=== PATIENT | female | born 1965 | race Caucasian/White ===

== ENCOUNTER → 2018-06-27 11:03 | Outpatient (CLI) | payer MEDICARE, MEDICAID, SELFPAY ==
--- NOTE | 2018-06-27 | DI.CT.S_ITS ---
PROCEDURE: CT SINUS SCREEN WO CON INDICATIONS: CHRONIC SINUSITIS TECHNIQUE: Noncontrast 3.0 mm axial images acquired from the frontal sinuses to the mid-sella, with coronal and sagittal reformats. For radiation dose reduction, the following was used: automated exposure control, adjustment of mA and/or kV according to patient size. COMPARISON: None. FINDINGS: Image quality: Excellent. Sinuses: Very minimal scattered mucosal thickening is present within the sinuses. Ostiomeatal Complexes: Ostiomeatal complexes are patent. There is marked narrowing on the right secondary to nasal septal deviation as well as mass effect from prominent merle bullosa as above. No Keon cells. Miscellaneous: Visualized intra-orbital contents are normal. There is a prominent left middle turbinate merle bullosa. Prominent rightward nasal septal deviation. IMPRESSION: 1. Minimal scattered sinus mucosal thickening. 2. Narrowing of the right ostiomeatal complex secondary to nasal septal deviation and merle bullosa as above. Dictated by: Sujata Rodriguez M.D. on 06/27/2018 at 15:42 Approved by: Sujata Rodriguez M.D. on 06/27/2018 at 15:44
== END ==
PROVIDERS: Visit Provider Otolaryngology
DX: J32.9 Chronic sinusitis, unspecified (principal); J34.2 Deviated nasal septum; J34.3 Hypertrophy of nasal turbinates
CPT/HCPCS: 70486

== ENCOUNTER → 2018-10-07 11:11 | Outpatient (CLI) | payer MEDICARE, MEDICAID, SELFPAY ==
[2018-10-07 12:11] LABS: Add Manual Diff / Slide Review NO; Basophils Percent Auto 0.3 % (0-2); Eosinophils Percent Auto 2.5 % (2-4); Hematocrit 40.5 % (36-46); Hemoglobin 13.5 g/dL (12.0-16.0); Lymphocytes Percent Auto 20.5 % (25-40); Mean Corpuscular HGB Conc 33.3 % (30-36); Mean Corpuscular Hemoglobin 30.2 PG (26-34); Mean Corpuscular Volume 90.7 fL (80-100); Monocytes Percent Auto 9.1 % (3-14); Neutrophils Absolute Auto 2900 /uL (1500-7000); Neutrophils Percent Auto 67.6 % (50-75); Platelet Count 200 X10^3/uL (150-400); Red Blood Cell Count 4.47 X10^6/uL (4.0-5.2); Red Cell Distribution Width 13.7 % (11.6-14.8); White Blood Cell Count 4.3 X10^3/uL (4.5-11.0)
[2018-10-07 12:20] LABS: Alanine Aminotransferase 28 IU/L (9-52); Albumin 4.8 g/dL (3.5-5.0); Albumin Globulin Ratio 1.4 (1.0-2.8); Alkaline Phosphatase 52 U/L (38-126); Aspartate Aminotransferase 31 IU/L (14-36); BUN Creatinine Ratio 15.6 (6-22); Bilirubin Total 0.8 mg/dL (0.2-1.3); Blood Urea Nitrogen 14 mg/dL (7-17); Calcium 9.8 mg/dL (8.4-10.2); Carbon Dioxide 27 mmol/L (22-32); Chloride 100 mmol/L (98-107); Cholesterol 181 mg/dL (140-199); Estimated Glomerular Filt Rate > 60.0 mL/min (>60); Globulin 3.5 g/dL (1.7-4.1); Glucose 110 mg/dL (70-100); HDL Cholesterol 84 mg/dL (40-60); HEMOLYSIS < 15 (0-50); LDL Cholesterol Calculated 79 mg/dL (<100); Potassium 3.9 mmol/L (3.4-5.1); Sodium 141 mmol/L (137-145); Total Protein 8.3 g/dL (6.3-8.2); Triglycerides 91 mg/dL (35-150)
[2018-10-07 13:11] LABS: Thyroid Stimulating Hormone 1.07 uIU/mL (0.47-4.68)
== END ==
PROVIDERS: PCP Family Medicine; Visit Provider Family Medicine
DX: E78.2 Mixed hyperlipidemia (principal); Z00.00 Encounter for general adult medical examination without abnormal findings
CPT/HCPCS: 36415; 80053; 80061; 84443; 85025

== ENCOUNTER → 2019-02-05 12:25 | Outpatient (CLI) | payer MEDICARE, MEDICAID, SELFPAY ==
--- NOTE | 2019-02-05 | DI.MG.S_ITS ---
BILATERAL DIGITAL SCREENING MAMMOGRAM 3D/2D WITH CAD: 02/05/2019 CLINICAL: Routine screening. Family history of breast cancer. Comparison is made to exams dated: 06/13/2017 mammogram, 10/27/2015 mammogram, and 10/26/2014 mammogram - [facility]. The tissue of both breasts is heterogeneously dense. This may lower the sensitivity of mammography. Current study was also evaluated with a Computer Aided Detection (CAD) system. No significant masses, calcifications, or other findings are seen in either breast. There has been no significant interval change. IMPRESSION: NEGATIVE There is no mammographic evidence of malignancy. A 1 year screening mammogram is recommended. This exam was interpreted at Station ID: [id number]. NOTE: For mammograms, a report in lay terms will be sent to the patient. Approximately 15% of breast malignancies will not be visualized mammographically. In the management of a palpable breast mass, a negative mammogram must not discourage biopsy of a clinically suspicious lesion. Electronically Signed By: Ryne coppola/lc:02/05/2019 13:15:44 letter sent: Normal Exam ACR BI-RADS Category 1: Negative 3341F
== END ==
PROVIDERS: PCP Family Medicine; Visit Provider Family Medicine
DX: Z12.31 Encounter for screening mammogram for malignant neoplasm of breast (principal); Z80.3 Family history of malignant neoplasm of breast
CPT/HCPCS: 77063; 77067

== ENCOUNTER 2019-06-07 09:21 | Emergency (ER) | payer MEDICARE, MEDICAID, SELFPAY ==
[2019-06-07 09:25] VITALS: BP 155/107; PULSE 80; RESP 14; TEMP 36.3; O2SAT 95; BMI 37.1
[2019-06-07 09:28] VITALS: PULSE 80
--- NOTE | 2019-06-07 09:30 | ED.EXTPRO ---
HPI - Extremity Problem General Chief complaint: Extremity Problem,Nontraumatic Stated complaint: L wrist swollen Time Seen by Provider: 06/07/19 09:26 Source: patient Mode of arrival: ambulatory Limitations: no limitations History of Present Illness HPI Narrative: Patient is a 54-year-old female who presents with left wrist pain and swelling. She says she picked up a bag bird see a few days ago she did not think she injured it. However yesterday and this morning she has noticed increased swelling she denies numbness or tingling. She has difficulty opening her hand completely because it hurts so bad. She has already had carpal tunnel surgery on that hand. She takes meloxicam and Vicodin daily. She was icing it she said that helped a little. MD Complaint: extremity pain and extremity swelling Pain Consistency: constant Location: left and upper extremity Related Data Previous Rx's Medication Instructions Recorded dextroamphetamine-amphetamine 15 mg PO SEE INSTRUCTIONS #30 tab 03/04/17 [Adderall] dextroamphetamine-amphetamine 15 mg PO BID #30 tab 05/02/17 [Adderall] benzonatate 100 mg capsule 100 mg PO TID #30 cap 02/07/18 albuterol sulfate 90 mcg/actuation 2 puff INHALATION Q4-6H PRN #6.7 04/27/18 aerosol inhaler gram fluconazole 150 mg tablet 150 mg PO ONCE #1 tab 04/27/18 inhalational spacing device #1 each 04/27/18 fluconazole 150 mg tablet 150 mg PO ONCE #1 tab 09/16/18 atenolol 100 mg tablet 100 mg PO Q DAY #90 tab 01/06/19 meloxicam 7.5 mg tablet 7.5 mg PO AMCC #90 tab 01/06/19 potassium chloride 20 mEq 20 meq PO QDAY #90 tab 03/02/19 tablet,extended release(part/cryst) omeprazole 20 mg capsule,delayed 20 mg PO TID #90 cap 04/06/19 release acyclovir 400 mg tablet 400 mg PO TID PRN #45 tab 04/22/19 atorvastatin [Lipitor] 10 mg PO HS #90 tab 04/22/19 hydrochlorothiazide 25 mg PO QDAY #90 tab 04/22/19 lamotrigine 150 mg tablet 300 mg PO QDAY #180 tab 04/22/19 dextroamphetamine-amphetamine 30 15 mg PO BID #60 tab 04/28/19 mg tablet hydrocodone 7.5 mg-acetaminophen 2 tab PO TID PRN #180 tab 06/04/19 325 mg tablet Allergies Allergy/AdvReac Type Severity Reaction Status Date / Time gabapentin [GABAPENTIN] Allergy Mild STOMACH Verified 06/07/19 09:27 UPSET nortriptyline [NORTRIPTYLINE] Allergy Mild STOMACH Verified 06/07/19 09:27 UPSET oxycodone [OXYCODONE] Allergy Mild MAKES ME Verified 06/07/19 09:27 ITCHY sumatriptan [SUMATRIPTAN] Allergy Mild Verified 06/07/19 09:27 pain contract AdvReac Unknown Uncoded 10/10/18 09:36 [facility] Medical History ADHD (attention deficit hyperactivity disorder) (Chronic) Ankle pain (Resolved) Anxiety (Chronic) Carpal tunnel syndrome (Resolved) Chronic back pain (Chronic) Chronic headaches (Chronic) Depression (Chronic) HSV (herpes simplex virus) infection (Chronic) Hypertension (Chronic) Lumbar spine pain (Chronic) Surgical History Anesthesia (Resolved) H/O varicose vein stripping (Resolved 2012) History of carpal tunnel repair (Resolved 02/17/13) History of lumbosacral spine surgery (Resolved 12/2004) Status post knee surgery (Resolved 2011) Status post tubal ligation (Resolved 2000) Family History (Updated 06/20/18 @ 12:29 by Ly Camarena) Mother Age: 75 Diabetes mellitus Asthma Obesity Essential hypertension Hyperlipidemia Sister Age: 53 Hyperlipidemia Obesity Essential hypertension Father CAD (coronary artery disease) Grandfather Cancer Grandmother No problems noted. Grandfather No problems noted. Grandmother No problems noted. Family/Other Breast cancer Family/Other Breast cancer Social History Smoking Status: Current some day smoker Family History Mother Age: 75 Diabetes mellitus Asthma Obesity Essential hypertension Hyperlipidemia Sister Age: 53 Hyperlipidemia Obesity Essential hypertension Father CAD (coronary artery disease) Grandfather Cancer Grandmother No problems noted. Grandfather No problems noted. Grandmother No problems noted. Family/Other Breast cancer Family/Other Breast cancer Social History Smoking Status: Current some day smoker Exam Initial Vital Signs Initial Vital Signs: Vital Signs Temperature 97.4 F L 06/07/19 09:25 Pulse Rate 80 06/07/19 09:25 Respiratory Rate 14 06/07/19 09:25 Blood Pressure 155/107 H 06/07/19 09:25 Pulse Oximetry 95 06/07/19 09:25 GENERAL: Well-appearing, well-nourished and in no acute distress. CARDIOVASCULAR: peripheral pulses in tact, cap refill <2 sec RESPIRATORY: No respiratory distress, speaks in full sentences without difficulty EXTREMITIES: Normal range of motion, no clubbing or edema. Neurovascularly intact Left wrist swollen over flexor retinaculum. She is able to extend her fingers some. She has good sensations strong radial pulse. NEUROLOGICAL: Cranial nerves II through XII grossly intact. Normal gait and speech. SKIN: Warm, dry, no petechiae, no rashes or lesions. Course Orders Ordered: ED Orders 06/07/19 09:31 XR wrist LT min 3V Stat Vital Signs Vital signs: Vital Signs - 8 hr 06/07/19 09:25 06/07/19 09:28 Temperature 97.4 F L Pulse Rate 80 Pulse Rate [Left Radial] 80 Respiratory Rate 14 Blood Pressure 155/107 H Pulse Oximetry 95 MDM - Extremity (Nontraumatic) Imaging Data left wrist: Radiologist's impression: PROCEDURE: XR WRIST LT MIN 3V INDICATIONS: Pain left wrist w/o known trauma TECHNIQUE: 4 views of the wrist were acquired. COMPARISON: None. FINDINGS: Bones: No displaced fractures or dislocations. No suspicious bony lesions. Moderate degenerative changes are present involving the basal joints of the thumb. There is ulnar minus variance by approximately 2 mm. Soft tissues: No suspicious soft tissue calcifications. IMPRESSION: 1. No acute fractures. 2. Moderate degenerative changes of the distal joints of the thumb. 3. Ulnar minus variance. Dictated by: Alden Freeman M.D. on 06/07/2019 at 8:4 Discharge Plan Departure Patient Disposition: Home Clinical Impression: Right wrist sprain Qualifiers: Encounter type: initial encounter Qualified Code(s): S63.501A - Unspecified sprain of right wrist, initial encounter Discharge Date/Time: 06/07/19 10:16 Instructions: Wrist Sprain Activity Restrictions/Additional Instructions: *You have been diagnosed with right wrist sprain *What to do: Elevate, ice 20-30 minutes at a time, increase activity as tolerated *Continue to take medications as directed Continue meloxicam and Vicodin as previously prescribed *Follow up with your primary care provider in 2-3 days *Return to ER if you should have numbness tingling weakness or any new, worsening or concerning symptoms Prescriptions: No Action albuterol sulfate 90 mcg/actuation HFA aerosol inhaler 2 puff INHALATION Q4-6H PRN (Reason: bronchospasm) Qty: 6.7 RF: 1 (DME) inhalational spacing device [Aerochamber MV] spacer See Dose Instructions .ROUTE .MEDSUPPLY Qty: 1 RF: 0 fluconazole 150 mg tablet 150 mg PO ONCE Qty: 1 RF: 0 fluconazole 150 mg tablet 150 mg PO ONCE Qty: 1 RF: 0 benzonatate [Tessalon Perles] 100 mg capsule 100 mg PO TID Qty: 30 RF: 1 dextroamphetamine-amphetamine [Adderall] 30 MG tablet 15 mg PO SEE INSTRUCTIONS Qty: 30 RF: 0 dextroamphetamine-amphetamine [Adderall] 30 MG tablet 15 mg PO BID Qty: 30 RF: 0 atenolol 100 mg tablet 100 mg PO Q DAY Qty: 90 RF: 1 meloxicam [Mobic] 7.5 mg tablet 7.5 mg PO AMCC Qty: 90 RF: 1 potassium chloride [Klor-Con M20] 20 mEq tablet,ER particles/crystals 20 meq PO QDAY Qty: 90 RF: 2 omeprazole 20 mg capsule,delayed release(DR/EC) 20 mg PO TID Qty: 90 RF: 2 acyclovir 400 mg tablet 400 mg PO TID PRN (Reason: herpes) Qty: 45 RF: 0 hydrochlorothiazide 25 mg tablet 25 mg PO QDAY Qty: 90 RF: 1 atorvastatin [Lipitor] 10 mg tablet 10 mg PO HS Qty: 90 RF: 0 lamotrigine [Lamictal] 150 mg tablet 300 mg PO QDAY Qty: 180 RF: 1 dextroamphetamine-amphetamine [Adderall] 30 mg tablet 15 mg PO BID Qty: 60 RF: 0 hydrocodone-acetaminophen 7.5-325 mg tablet 2 tab PO TID PRN (Reason: PAIN) Qty: 180 RF: 0 Referrals: Manuel Rodríguez MD [Primary Care Provider] -
[2019-06-07 10:15] VITALS: BP 165/104; PULSE 75; RESP 18; TEMP 36.7; O2SAT 99
== END 2019-06-07 10:16 | disposition home or self-care (01) ==
LOC: ED 10:07
PROVIDERS: Emergency Provider Emergency Medicine; PCP Family Medicine
DX: S63.501A Unspecified sprain of right wrist, initial encounter (principal)
CPT/HCPCS: 73110; 99282; 99283

== ENCOUNTER → 2019-12-07 11:55 | Outpatient (CLI) | payer MEDICARE, MEDICAID, SELFPAY ==
[2019-12-07 12:28] LABS: Add Manual Diff / Slide Review NO; Basophils Absolute Auto 0 /uL (0-100); Basophils Percent Auto 0.3 % (0-2); Eosinophils Absolute Auto 100 /uL (0-450); Eosinophils Percent Auto 2.6 % (2-4); Hematocrit 39.5 % (36-46); Hemoglobin 13.4 g/dL (12.0-16.0); Lymphocytes Absolute Auto 900 /uL (1100-4500); Lymphocytes Percent Auto 18.7 % (25-40); Mean Corpuscular Hemoglobin 30.5 PG (26-34); Mean Corpuscular Volume 89.7 fL (80-100); Monocytes Absolute Auto 400 /uL (0-900); Monocytes Percent Auto 9.5 % (3-14); Neutrophils Absolute Auto 3200 /uL (1500-7000); Neutrophils Percent Auto 68.9 % (50-75); Platelet Count 218 X10^3/uL (150-400); Red Cell Distribution Width 13.9 % (11.6-14.8); White Blood Cell Count 4.7 X10^3/uL (4.5-11.0)
[2019-12-07 12:56] LABS: Alanine Aminotransferase 24 IU/L (<35); Albumin 4.6 g/dL (3.5-5.0); Albumin Globulin Ratio 1.6 (1.0-2.8); Alkaline Phosphatase 52 U/L (38-126); Aspartate Aminotransferase 29 IU/L (14-36); Blood Urea Nitrogen 20 mg/dL (7-17); Calcium 9.6 mg/dL (8.4-10.2); Carbon Dioxide 31 mmol/L (22-32); Chloride 99 mmol/L (98-107); Cholesterol 173 mg/dL (140-199); Estimated Glomerular Filt Rate > 60.0 mL/min (>60); Globulin 2.9 g/dL (1.7-4.1); Glucose 109 mg/dL (70-100); HDL Cholesterol 71 mg/dL (40-60); HEMOLYSIS < 15 (0-50); LDL Cholesterol Calculated 79 mg/dL (<100); Potassium 4.1 mmol/L (3.4-5.1); Sodium 138 mmol/L (137-145); Total Protein 7.5 g/dL (6.3-8.2); Triglycerides 113 mg/dL (35-150)
[2019-12-07 13:27] LABS: Thyroid Stimulating Hormone 0.56 uIU/mL (0.47-4.68)
== END ==
PROVIDERS: PCP Family Medicine; Referring Provider Family Medicine; Visit Provider Family Medicine
DX: E78.2 Mixed hyperlipidemia (principal)
CPT/HCPCS: 36415; 80053; 80061; 84443; 85025

== ENCOUNTER → 2020-07-27 14:33 | Outpatient (CLI) | payer MEDICARE, MEDICAID, SELFPAY ==
--- NOTE | 2020-07-27 | DI.MG.S_ITS ---
BILATERAL DIGITAL SCREENING MAMMOGRAM 3D/2D WITH CAD: 07/27/2020 CLINICAL: Routine screening. Family history of breast cancer. Comparison is made to exams dated: 02/05/2019 mammogram, 06/13/2017 mammogram, and 10/27/2015 mammogram - [facility]. There are scattered fibroglandular elements in both breasts. Current study was also evaluated with a Computer Aided Detection (CAD) system. No significant masses, calcifications, or other findings are seen in either breast. There has been no significant interval change. IMPRESSION: NEGATIVE There is no mammographic evidence of malignancy. A 1 year screening mammogram is recommended. This exam was interpreted at Station ID: [id number]. NOTE: For mammograms, a report in lay terms will be sent to the patient. Approximately 15% of breast malignancies will not be visualized mammographically. In the management of a palpable breast mass, a negative mammogram must not discourage biopsy of a clinically suspicious lesion. Electronically Signed By: Karyna la/lc:07/27/2020 17:18:58 letter sent: Normal Exam ACR BI-RADS Category 1: Negative 3341F
== END ==
PROVIDERS: PCP Family Medicine; Referring Provider Family Medicine; Visit Provider Family Medicine
DX: Z12.31 Encounter for screening mammogram for malignant neoplasm of breast (principal); Z80.3 Family history of malignant neoplasm of breast
CPT/HCPCS: 77063; 77067

== ENCOUNTER → 2020-07-28 10:46 | Outpatient (CLI) | payer MEDICARE, MEDICAID, SELFPAY ==
[2020-07-28 12:40] LABS: Add Manual Diff / Slide Review NO; Basophils Absolute Auto 0 /uL (0-100); Basophils Percent Auto 0.4 % (0-2); Eosinophils Absolute Auto 100 /uL (0-450); Eosinophils Percent Auto 2.5 % (2-4); Hematocrit 37.8 % (36-46); Hemoglobin 12.6 g/dL (12.0-16.0); Lymphocytes Absolute Auto 800 /uL (1100-4500); Lymphocytes Percent Auto 24.4 % (25-40); Mean Corpuscular HGB Conc 33.5 % (30-36); Mean Corpuscular Hemoglobin 31.4 PG (26-34); Mean Corpuscular Volume 93.9 fL (80-100); Monocytes Absolute Auto 300 /uL (0-900); Monocytes Percent Auto 10.3 % (3-14); Neutrophils Absolute Auto 2100 /uL (1500-7000); Neutrophils Percent Auto 62.4 % (50-75); Platelet Count 149 X10^3/uL (150-400); Red Blood Cell Count 4.02 X10^6/uL (4.0-5.2); Red Cell Distribution Width 13.6 % (11.6-14.8); White Blood Cell Count 3.3 X10^3/uL (4.5-11.0)
[2020-07-28 13:00] LABS: Alanine Aminotransferase 65 IU/L (<35); Albumin 4.5 g/dL (3.5-5.0); Albumin Globulin Ratio 1.6 (1.0-2.8); Alkaline Phosphatase 47 U/L (38-126); Aspartate Aminotransferase 63 IU/L (14-36); BUN Creatinine Ratio 14.9 (6-22); Bilirubin Total 0.7 mg/dL (0.2-1.3); Blood Urea Nitrogen 14 mg/dL (7-17); Calcium 9.6 mg/dL (8.4-10.2); Carbon Dioxide 33 mmol/L (22-32); Chloride 100 mmol/L (98-107); Cholesterol 164 mg/dL (140-199); Estimated Glomerular Filt Rate > 60.0 mL/min (>60); Globulin 2.9 g/dL (1.7-4.1); Glucose 109 mg/dL (70-100); HDL Cholesterol 67 mg/dL (40-60); HEMOLYSIS < 15 (0-50); LDL Cholesterol Calculated 77 mg/dL (<100); Potassium 3.5 mmol/L (3.4-5.1); Sodium 139 mmol/L (137-145); Total Protein 7.4 g/dL (6.3-8.2); Triglycerides 102 mg/dL (35-150)
[2020-07-28 13:29] LABS: Thyroid Stimulating Hormone 1.08 uIU/mL (0.47-4.68)
== END ==
PROVIDERS: PCP Family Medicine; Referring Provider Family Medicine; Visit Provider Family Medicine
DX: E78.2 Mixed hyperlipidemia (principal); M15.0 Primary generalized (osteo)arthritis; Z13.29 Encounter for screening for other suspected endocrine disorder
CPT/HCPCS: 36415; 80053; 80061; 84443; 85025

== ENCOUNTER → 2020-08-17 09:42 | Outpatient (CLI) | payer MEDICARE, MEDICAID, SELFPAY ==
[2020-08-17 12:03] LABS: COVID19 -Nasal RAPID Negative (Negative)
== END ==
PROVIDERS: PCP Family Medicine; Visit Provider Surgery
DX: Z11.59 Encounter for screening for other viral diseases (principal)
CPT/HCPCS: 87635; C9803

== ENCOUNTER 2020-08-18 12:27 | Day surgery (SDC) | payer MEDICARE, MEDICAID, SELFPAY ==
--- NOTE | 2020-08-18 | PATH_ITS ---
[facility] Accession Number: [id number] . 01 Material submitted: . colon - DESCENDING COLON POLYP . 01 Clinical history: . SDC . 02 Diagnosis: Descending Colon, Polyp: Colonic mucosa with no diagnostic abnormality, consistent with polypoid redundancy. Negative for serrated lesion, dysplasia or malignancy. Additional step sections examined. MRV 08/23/2020 1344 Local . 02 Electronically signed: . Justyn Kurtz MD, PhD, Pathologist NPI- [id number] . 01 Gross description: . DESCENDING COLON POLYP: Received in formalin are 2 fragment(s) of donald, soft tissue measuring 0.4 x 0.2 x 0.2 cm to 0.3 x 0.2 x 0.1 cm submitted entirely in 1 cassette(s) /QBJ 08/19/2020 0650 Local . 02 Pathologist provided ICD-10: K63.5 . 02 CPT . 830239 Performed at: 01 [facility] [address], [place], [place] [id number] MD Dequan Bradley MD Phone: [phone] Performed at: 02 [facility] [address] [place], [place] [id number] MD Lupe Olivas MD Phone: [phone]
[2020-08-18 12:47] VITALS: BP 136/94; PULSE 63; RESP 15; TEMP 36.2; O2SAT 99; BMI 32.3
[2020-08-18] MEDS: LACTATED RINGERS 1,000 ML 200 ML IV (12:56)
--- NOTE | 2020-08-18 13:50 | PM.OP.ENDO ---
Operative Date/Time/Diagnoses Date of procedure: 08/18/20 Time of procedure: 13:50 Pre-op diagnosis: Screening colonoscopy Post-op diagnosis: other (Colonic polyp-descending colon) Procedure & Clinicians Study performed: Colonoscopy Polypectomy Same procedure as scheduled: Yes Indications: 55-year-old woman no prior colonoscopy presents for routine screening Surgeon: Ambrocio Shi Procedure Notes SCOAP/Timeout: Performed Procedure in detail: Medications: Conscious sedation using 7mg IV midazolam and 250mcg IV of fentanyl The history and physical was performed/updated and the patient is ASA class is 2 The procedure was discussed in detail with the patient. Potential risks complications including infection, bleeding, missed diagnosis, perforation, need for surgery, and were explained. Their questions were answered and informed consent was obtained. Patient was brought to the procedure room and placed standard monitoring equipment. The patient's vital signs were monitored continuously throughout the entire procedure. Prior to starting time-out was performed. The ablation patient was placed in the left lateral recumbent position. Procedural sedation was administered. Examination began with a thorough inspection of the perianal area there was no evidence of fissures, fistulae, external hemorrhoids or cutaneous malignancy. The colonoscopy scope was then placed into the anal canal and was advanced to the cecum, which was identified by the ileocecal valve, the appendiceal orifice and the confluence of the taenia. The scope was then slowly withdrawn examining colon thoroughly in all directions, irrigating it of any residual stool. 2 mm benign appearing polyp in the descending colon removed with biopsy forceps. Grade 2 internal hemorrhoids The patient tolerated the procedure well. They will be discharged once criteria are met. The prep was of good/excellent quality. The withdrawl time was 9 minutes. The sedation time was 28 minutes. Findings: polyp Specimen(s): other (Descending colon polyp) Complications: none Impression: Colonic polyp Post-procedure Recommendations: Colonscopy in 5 years Disposition: same day surgery
--- NOTE | 2020-08-18 13:51 | PM.HP.1 ---
History of Present Illness History of Present Illness Date Patient Seen: 08/18/20 Time Patient Seen: 13:51 Chief complaint: SDC Narrative: The patient presents for colorectal sreening. They have never had any previous examination for such. No personal or family history of colon cancer. On further history denies any recent gastrointestinal symptoms. No nausea, vomiting, abdominal pain, loss of appetite, unexplained weight loss, change in bowel habits, diarrhea, constipation, melena, hematochezia, or bright red blood per rectum. Patient History Medical History (Updated 08/18/20 @ 13:51 by Ambrocio Shi MD) ADHD (attention deficit hyperactivity disorder) Ankle pain Anxiety Carpal tunnel syndrome Chronic back pain Chronic headaches Depression HSV (herpes simplex virus) infection Hypertension Lumbar spine pain Surgical History Anesthesia H/O varicose vein stripping (2012) History of carpal tunnel repair (02/17/13) History of lumbosacral spine surgery (12/2004) Status post knee surgery (2011) Status post tubal ligation (2000) Family & Social History Family History Mother Age: 76 Diabetes mellitus Asthma Obesity Essential hypertension Hyperlipidemia Sister Age: 54 Hyperlipidemia Obesity Essential hypertension Father CAD (coronary artery disease) Grandfather Cancer Grandmother No problems noted. Grandfather No problems noted. Grandmother No problems noted. Family/Other Breast cancer Family/Other Breast cancer Social History: household members none Tobacco & Substance use: Tobacco type cigarettes Smoking Status Current some day smoker alcohol intake current alcohol intake frequency holiday/special occasion Substance Use Type does not use Meds Home Medications and Allergies Home Medications Medication Instructions Recorded Confirmed Type omeprazole 20 mg capsule,delayed 20 mg PO TID #90 cap 12/09/19 08/18/20 Rx release hydrochlorothiazide 25 mg tablet 25 mg PO QDAY #90 tab 01/18/20 08/18/20 Rx lamotrigine 150 mg tablet 300 mg PO QDAY #180 tab 04/25/20 08/18/20 Rx acyclovir 400 mg tablet See Rx Instructions .ROUTE 05/09/20 08/18/20 Rx .COMPLEX #45 tab potassium chloride 20 mEq See Rx Instructions .ROUTE 05/16/20 08/18/20 Rx tablet,extended release(part/cryst) .COMPLEX #90 tab atenolol 100 mg tablet See Rx Instructions .ROUTE 06/21/20 08/18/20 Rx .COMPLEX #90 tab meloxicam 7.5 mg tablet See Rx Instructions .ROUTE 06/21/20 08/18/20 Rx .COMPLEX #90 tab atorvastatin 10 mg tablet See Rx Instructions .ROUTE 07/18/20 08/18/20 Rx .COMPLEX #90 tablet dextroamphetamine-amphetamine 30 See Rx Instructions .ROUTE 08/01/20 08/18/20 Rx mg tablet .COMPLEX #30 tablet hydrocodone 7.5 mg-acetaminophen 2 tab PO TID PRN #180 tab 08/08/20 08/18/20 Rx 325 mg tablet Allergies Allergy/AdvReac Type Severity Reaction Status Date / Time gabapentin [GABAPENTIN] Allergy Mild STOMACH Verified 08/18/20 12:42 UPSET nortriptyline [NORTRIPTYLINE] Allergy Mild STOMACH Verified 08/18/20 12:42 UPSET oxycodone [OXYCODONE] Allergy Mild MAKES ME Verified 08/18/20 12:42 ITCHY sumatriptan [SUMATRIPTAN] Allergy Unknown Verified 08/18/20 12:42 pain contract AdvReac Unknown Uncoded 08/18/20 12:42 Review of Systems Review of Systems Narrative: A 10 point review of systems is negative except as noted in the HPI Exam Vital Signs (past 8 hours): - 08/18/20 12:47 Temperature 97.1 F L Pulse Rate 63 Respiratory Rate 15 Blood Pressure 136/94 H Pulse Oximetry 99 Oxygen Delivery Method Room Air Narrative Exam Narrative: General-no acute distress, well nourished adult female HEENT-moist mucous membranes, no scleral icterus Neck-supple, no lymphadenopathy Chest- non labored respirations, clear to auscultation bilaterally Cardiac-regular rate no peripheral edema Abdomen-soft, nontender, non distended Extremities-warm, well perfused Neurological-alert and oriented, no focal deficits Assessment & Plan Assessment and plan (1) Screening for colon cancer: Status: Acute Assessment & Plan narrative: The patient requires colorectal screening and colonoscopy is recommended. Technical details were discussed. Risks, benefits, alternatives explained. Risks including but not limited to myocardial infarction, aspiration, bleeding, pain, missed lesion, incomplete examination, need for further radiographic studies, colonic perforation, and need for major abdominal surgery were discussed. All questions were answered to their satisfaction, and they are in agreement with this plan.
[2020-08-18] MEDS: fentaNYL 250 MCG/5 ML INJ IV (14:11)
[2020-08-18] MEDS: MIDAZOLAM 5 MG/5 ML VIAL IV (14:11)
[2020-08-18 14:28] VITALS: BP 105/62; PULSE 62; RESP 15; TEMP 36.2; O2SAT 94
[2020-08-18 14:33] VITALS: BP 101/59; PULSE 60; RESP 15; O2SAT 93
[2020-08-18 14:38] VITALS: BP 99/53; PULSE 64; RESP 22; O2SAT 97
[2020-08-18 14:51] VITALS: BP 136/94; PULSE 63; RESP 16; TEMP 36.2; O2SAT 99
== END 2020-08-18 14:50 | disposition home or self-care (01) ==
PROVIDERS: PCP Family Medicine; Referring Provider Surgery; Visit Provider Surgery
PROC: 0DJD8ZZ Inspection of Lower Intestinal Tract, Via Natural or Artificial Opening Endoscopic (ICD-10-PCS; CPT 45378; principal; 2020-08-18 13:45)
DX: Z12.11 Encounter for screening for malignant neoplasm of colon (principal); I10 Essential (primary) hypertension; B00.9 Herpesviral infection, unspecified; F32.9 Major depressive disorder, single episode, unspecified; F41.9 Anxiety disorder, unspecified; K64.1 Second degree hemorrhoids; D12.4 Benign neoplasm of descending colon
CPT/HCPCS: 45380; J2250; J3010

== ENCOUNTER → 2020-08-24 10:02 | Outpatient (CLI) | payer MEDICARE, MEDICAID, SELFPAY ==
[2020-08-24 11:33] LABS: Alanine Aminotransferase 31 IU/L (<35); Albumin 4.5 g/dL (3.5-5.0); Albumin Globulin Ratio 1.7 (1.0-2.8); Alkaline Phosphatase 48 U/L (38-126); Aspartate Aminotransferase 33 IU/L (14-36); Bilirubin Total 0.8 mg/dL (0.2-1.3); Bilirubin Unconjugated 0.7 mg/dL (0.0-1.1); Globulin 2.7 g/dL (1.7-4.1); HEMOLYSIS < 15 (0-50); Total Protein 7.2 g/dL (6.3-8.2)
== END ==
PROVIDERS: PCP Family Medicine; Referring Provider Family Medicine; Visit Provider Family Medicine
DX: R79.89 Other specified abnormal findings of blood chemistry (principal)
CPT/HCPCS: 36415; 80076

== ENCOUNTER 2020-09-11 16:26 | Emergency (ER) | payer MEDICARE, MEDICAID, SELFPAY ==
[2020-09-11 16:29] VITALS: BP 228/113; PULSE 67; RESP 20; TEMP 36.5; O2SAT 99
--- NOTE | 2020-09-11 16:35 | DI.RAD.S_ITS ---
PROCEDURE: XR CHEST 1V INDICATIONS: chest pain TECHNIQUE: One view of the chest was acquired. COMPARISON: [facility], CHEST 2 VIEW, 11/24/2008, 21:51. [facility], CHEST 2 VIEW, 10/10/2007, 9:35. FINDINGS: Surgical changes and devices: None. Lungs and pleura: Lungs are clear. No pleural effusions or pneumothorax. Mediastinum: Mediastinal contours appear normal. Heart size is normal. Bones and chest wall: No suspicious bony lesions. Overlying soft tissues appear unremarkable. IMPRESSION: No acute cardiopulmonary abnormality. Dictated by: Hari Cosme M.D. on 09/11/2020 at 16:02 Approved by: Hari Cosme M.D. on 09/11/2020 at 16:04
[2020-09-11 16:43] VITALS: BP 207/108; PULSE 63; RESP 22
[2020-09-11 17:00] VITALS: BP 187/91; PULSE 60; RESP 18; O2SAT 99
--- NOTE | 2020-09-11 17:13 | ED_ITS ---
HPI - Chest Pain General Chief Complaint: Chest Pain Stated Complaint: states blood pressure is off, pins and needle feel Time Seen by Provider: 09/11/20 17:13 Source: patient Mode of arrival: Ambulatory History of Present Illness HPI narrative: 55-year-old woman with history of hypertension, hyperlipidemia, anxiety and bipolar 1 disorder presents with left-sided burning pain radiating from her neck into her upper chest and notably elevated blood pressures at home with systolics in the 190-200 range. She is not experiencing palpitations, orthopnea or dyspnea, no lower extremity edema, no nausea vomiting or diarrhea, no fevers, cough, chills, dysuria, abdominal pain. She was recently seen by her primary care physician who her usual 100 mg of atenolol and 25 mg of hydrochlorothiazide to include an extra 50 mg of atenolol in the evening. Over the last week this is not influenced her blood pressures at all. She also notes that 2-3 weeks ago she stumbled over her cat and fell against the wall with her left shoulder she does not describe hitting her no head or neck at that time but she still having shoulder pain and still actually has contusions to the acromial area of the left shoulder. Related Data Previous Rx's Medication Instructions Recorded acyclovir 400 mg tablet See Rx Instructions .ROUTE 08/29/20 .COMPLEX #45 tab atenolol 100 mg tablet See Rx Instructions .ROUTE 08/29/20 .COMPLEX #150 tab atorvastatin 10 mg tablet See Rx Instructions .ROUTE 08/29/20 .COMPLEX #90 tablet dextroamphetamine-amphetamine 30 See Rx Instructions .ROUTE 08/29/20 mg tablet .COMPLEX #30 [address] permit #1 ea 08/29/20 hydrochlorothiazide 25 mg tablet 25 mg PO QDAY #90 tab 08/29/20 hydrocodone 7.5 mg-acetaminophen 2 tab PO TID PRN #180 tab 08/29/20 325 mg tablet lamotrigine 150 mg tablet 300 mg PO QDAY #180 tab 08/29/20 meloxicam 7.5 mg tablet See Rx Instructions .ROUTE 08/29/20 .COMPLEX #90 tab omeprazole 20 mg capsule,delayed 20 mg PO TID #90 cap 08/29/20 release potassium chloride 20 mEq See Rx Instructions .ROUTE 08/29/20 tablet,extended release(part/cryst) .COMPLEX #90 tab dexamethasone 10 mg PO DAILY #5 tab 09/11/20 dexamethasone 10 mg PO DAILY #5 tab 09/11/20 lisinopril 20 mg PO DAILY #30 tab 09/11/20 lisinopril 20 mg PO DAILY #30 tab 09/11/20 Allergies Allergy/AdvReac Type Severity Reaction Status Date / Time gabapentin [GABAPENTIN] Allergy Mild STOMACH Verified 09/09/20 13:44 UPSET nortriptyline [NORTRIPTYLINE] Allergy Mild STOMACH Verified 09/09/20 13:44 UPSET oxycodone [OXYCODONE] Allergy Mild MAKES ME Verified 09/09/20 13:44 ITCHY sumatriptan [SUMATRIPTAN] Allergy Unknown Verified 09/09/20 13:44 pain contract AdvReac Unknown Uncoded 09/09/20 13:44 Review of Systems Review of Systems Narrative: Remainder of review of systems including constitutional, ENT, cardiovascular, respiratory, GI, , musculoskeletal, skin, neurologic and psychiatric systems reviewed and are unremarkable except as noted in HPI. Patient History Medical History ADHD (attention deficit hyperactivity disorder) Ankle pain Anxiety Carpal tunnel syndrome Chronic back pain Chronic headaches Chronic pain syndrome Depression HSV (herpes simplex virus) infection Hypertension Lumbar spine pain Surgical History Anesthesia H/O varicose vein stripping (2012) History of carpal tunnel repair (02/17/13) History of lumbosacral spine surgery (12/2004) Status post knee surgery (2011) Status post tubal ligation (2000) Family History Mother Age: 76 Diabetes mellitus Asthma Obesity Essential hypertension Hyperlipidemia Sister Age: 54 Hyperlipidemia Obesity Essential hypertension Father CAD (coronary artery disease) Grandfather Cancer Grandmother No problems noted. Grandfather No problems noted. Grandmother No problems noted. Family/Other Breast cancer Family/Other Breast cancer Social History household members: none Smoking Status: Current some day smoker alcohol intake: current Smoking Status: Current some day smoker tobacco type: cigarettes alcohol intake frequency: holidays/special occasions only Substance Use Type: does not use Exam Narrative Exam Narrative: General: Healthy appearing, in no acute distress. Able to give a complete and coherent history. Well-nourished well-developed HEENT: Moist mucous membranes, normal sclera with reactive pupils, Neck: No JVD, significant tenderness to palpation along the left lateral aspect of the cervical spine reproducing of radicular pain down into the shoulder in the upper chest of which she was complaining Respiratory: Lungs are clear to auscultation, no wheezing no rales no rhonchi. Full and symmetrical air movement Cardiac: Regular rate and rhythm no murmurs no bruits Abdomen: Soft nontender good bowel tones, no flank pain Skin: Warm and dry, no rashes Neurologic: Grossly neurologically intact with no obvious asymmetries or abnormalities Extremities: Contusion healing nicely to the yellow and green stages of that the bruise resolving over the left AC joint down toward the deltoid, well perfused, neurovascularly intact Psych: Cooperative, mildly anxious and slightly pressured speech Initial Vital Signs Initial Vital Signs: Vital Signs Temperature 97.7 F 09/11/20 16:29 Pulse Rate 67 09/11/20 16:29 Respiratory Rate 20 09/11/20 16:29 Blood Pressure 228/113 H 09/11/20 16:29 Pulse Oximetry 99 09/11/20 16:29 Course Orders Ordered: Discontinued Medications Dexamethasone (Dexamethasone 4 Mg Tablet) 10 mg PO NOW ONE Stop: 09/11/20 17:37 Last Admin: 09/11/20 17:59 Dose: 10 mg Documented by: YASMINE Lisinopril (Lisinopril 20 Mg Tablet) 20 mg PO NOW ONE Stop: 09/11/20 17:37 Last Admin: 09/11/20 18:01 Dose: 20 mg Documented by: YASMINE Vital Signs Vital signs: Vital Signs - 8 hr 09/11/20 16:29 09/11/20 16:43 09/11/20 17:00 Temperature 97.7 F Pulse Rate 67 63 60 Respiratory Rate 20 22 18 Blood Pressure 228/113 H 207/108 H 187/91 H Pulse Oximetry 99 99 MDM - Chest Pain Medical Records Data Attestation: I reviewed the patient's medical records. Lab Data Attestation: I reviewed the patient's lab results. Result diagrams: 09/11/20 16:46 09/11/20 16:46 Labs: Lab Results 09/11/20 09/11/20 09/11/20 Range/Units 16:46 16:46 16:46 WBC 4.2 L (4.5-11.0) X10^3/uL RBC 3.92 L (4.0-5.2) X10^6/uL Hgb 12.5 (12.0-16.0) g/dL Hct 36.6 (36-46) % MCV 93.5 (80-100) fL MCH 32.0 (26-34) PG MCHC 34.2 (30-36) % RDW 13.6 (11.6-14.8) % Plt Count 177 (150-400) X10^3/uL Neut % (Auto) 68.2 (50-75) % Lymph % (Auto) 19.9 L (25-40) % [place] % (Auto) 8.4 (3-14) % Eos % (Auto) 2.9 (2-4) % Baso % (Auto) 0.6 (0-2) % Neut # (Auto) 2800 (2963-0808) /uL Lymph # (Auto) 800 L (7432-9074) /uL [place] # (Auto) 300 (0-900) /uL Eos # (Auto) 100 (0-450) /uL Baso # (Auto) 0 (0-100) /uL PT 11.8 (10.1-12.7) SECONDS INR 1.0 (0.9-1.3) APTT 31 (26.4-36.2) SECONDS Sodium 139 (137-145) mmol/L Potassium 3.6 (3.4-5.1) mmol/L Chloride 104 (98-107) mmol/L Carbon Dioxide 34 H (22-32) mmol/L BUN 19 H (7-17) mg/dL Creatinine 0.85 (0.52-1.04) mg/dL Estimated GFR > 60.0 (>60) mL/min BUN/Creatinine Ratio 22.4 H (6-22) Glucose 107 H (70-100) mg/dL Calcium 9.3 (8.4-10.2) mg/dL Total Bilirubin 0.7 (0.2-1.3) mg/dL AST 38 H (14-36) IU/L ALT 34 (<35) IU/L Alkaline Phosphatase 45 (38-126) U/L Total Creatine Kinase 69 (30-135) U/L CK-MB (CK-2) TNP CK-MB (CK-2) Rel Index TNP Troponin I < 0.012 (0.01-0.034) ng/mL Total Protein 7.4 (6.3-8.2) g/dL Albumin 4.3 (3.5-5.0) g/dL Globulin 3.1 (1.7-4.1) g/dL Albumin/Globulin Ratio 1.4 (1.0-2.8) Lipase 56 (23-300) U/L ECG Data Attestation: I personally reviewed and interpreted this ECG as follows: Interpretation: Sinus rhythm at a rate of 60 Normal axis, normal intervals No acute ST T wave changes MDM Narrative Medical decision making narrative: 55-year-old woman with 2-3 weeks of left- sided chest pain, anxiety and hypertension. Her family continues to question her about her symptoms which is making her more anxious. It is unclear whether the pain in the anxiety are exacerbating her blood pressure whether this is a baseline issue that needs to be further addressed for her. Clearly the neck pain is related to the recent fall and resolving contusion to the left shoulder with some radicular findings and no evidence of acute bony injury of the cervical spine (or again, she describes no overt injury to the head or the neck with fall where she landed on her shoulder). She is reassured regarding the radicular pain. I have given her 3 day course of Decadron to help with the inflammation. I did review possible side effects of damián or hypomania given her diagnosis of bipolar 1 disorder. Her blood pressure is significantly elevated and has been so for the last week despite adding an additional 50 mg of atenolol. Will add 20 mg of lisinopril in the mornings. She has a follow-up appointment with her primary care physician in about a week which will be perfect in following up on blood pressure and reviewing medications and which need to continue. She is safe for home discharge Discharge Plan Departure Patient Disposition: Home Clinical Impression: Radiculopathy affecting upper extremity Hypertension Qualifiers: Hypertension type: essential hypertension Qualified Code(s): I10 - Essential (primary) hypertension Instructions: DI for Neck Pain Activity Restrictions/Additional Instructions: It was so nice to see you again I think you have 2 issues going on today. First, your blood work and EKG were very reassuring. You are not having a heart attack or heart attack like syndrome. I think that the pain down the left side of your neck and her shoulder is from nerves in your neck. I am wondering if when you bruits your shoulder you twisted your neck enough to also cause some spasm in the neck which is pinching the nerve and causing the pain. For this, I am going to suggest that you take 3 days of steroid to reduce the inflammation. I have given you a dose of Decadron here in the emergency room. You will need 2.5 pills (10 mg) tomorrow and on Saturday. For your blood pressure, I am going to suggest that we add a 3rd blood pressure medication. To consistently be in the 180s to 200 systolic, you are likely going to need some additional help. Make sure you take the extra half a dose of atenolol tonight as you have been doing for this last week. Additionally I have given you 20 mg of lisinopril(the new medicine) and I will give you a prescription for this medicine daily and continue to keep track of your blood pressures. Keep your follow-up appointment with your new primary care doctor to see if this medicine is working for you. The 2 prescriptions have been electronically transmitted to [place] [facility] for you to picker tomorrow. If you have new or worsening problems, please feel free to return. I wish you the best Prescriptions: New dexamethasone 4 mg tablet 10 mg PO DAILY Qty: 5 RF: 0 lisinopril 20 mg tablet 20 mg PO DAILY Qty: 30 RF: 0 dexamethasone 4 mg tablet 10 mg PO DAILY Qty: 5 RF: 0 lisinopril 20 mg tablet 20 mg PO DAILY Qty: 30 RF: 0 No Action (DME) disabled parking permit See Rx Instructions .ROUTE .MEDSUPPLY Qty: 1 RF: 0 atenolol 100 mg tablet See Rx Instructions .ROUTE .COMPLEX Qty: 150 RF: 3 acyclovir 400 mg tablet See Rx Instructions .ROUTE .COMPLEX Qty: 45 RF: 2 atorvastatin 10 mg tablet See Rx Instructions .ROUTE .COMPLEX Qty: 90 RF: 3 hydrochlorothiazide 25 mg tablet 25 mg PO QDAY Qty: 90 RF: 3 lamotrigine [Lamictal] 150 mg tablet 300 mg PO QDAY Qty: 180 RF: 3 meloxicam 7.5 mg tablet See Rx Instructions .ROUTE .COMPLEX Qty: 90 RF: 3 omeprazole 20 mg capsule,delayed release(DR/EC) 20 mg PO TID Qty: 90 RF: 5 potassium chloride 20 mEq tablet,ER particles/crystals See Rx Instructions .ROUTE .COMPLEX Qty: 90 RF: 2 dextroamphetamine-amphetamine 30 mg tablet See Rx Instructions .ROUTE .COMPLEX Qty: 30 RF: 0 hydrocodone-acetaminophen 7.5-325 mg tablet 2 tab PO TID PRN (Reason: PAIN) Qty: 180 RF: 0 Referrals: Alex Starks MD [Primary Care Provider] -
[2020-09-11 17:14] LABS: Prothrombin Time 11.8 SECONDS (10.1-12.7)
[2020-09-11 17:17] LABS: PTT Partial Thromboplastin Tim 31 SECONDS (26.4-36.2)
[2020-09-11 17:19] LABS: Alanine Aminotransferase 34 IU/L (<35); Albumin 4.3 g/dL (3.5-5.0); Albumin Globulin Ratio 1.4 (1.0-2.8); Alkaline Phosphatase 45 U/L (38-126); Aspartate Aminotransferase 38 IU/L (14-36); BUN Creatinine Ratio 22.4 (6-22); Bilirubin Total 0.7 mg/dL (0.2-1.3); Blood Urea Nitrogen 19 mg/dL (7-17); Calcium 9.3 mg/dL (8.4-10.2); Carbon Dioxide 34 mmol/L (22-32); Chloride 104 mmol/L (98-107); Creatine Kinase 69 U/L (30-135); Estimated Glomerular Filt Rate > 60.0 mL/min (>60); Globulin 3.1 g/dL (1.7-4.1); Glucose 107 mg/dL (70-100); HEMOLYSIS < 15 (0-50); Lipase 56 U/L (23-300); Potassium 3.6 mmol/L (3.4-5.1); Sodium 139 mmol/L (137-145); Total Protein 7.4 g/dL (6.3-8.2)
[2020-09-11 17:20] LABS: Add Manual Diff / Slide Review NO; Basophils Absolute Auto 0 /uL (0-100); Basophils Percent Auto 0.6 % (0-2); Eosinophils Absolute Auto 100 /uL (0-450); Eosinophils Percent Auto 2.9 % (2-4); Hematocrit 36.6 % (36-46); Hemoglobin 12.5 g/dL (12.0-16.0); Lymphocytes Absolute Auto 800 /uL (1100-4500); Lymphocytes Percent Auto 19.9 % (25-40); Mean Corpuscular HGB Conc 34.2 % (30-36); Mean Corpuscular Volume 93.5 fL (80-100); Monocytes Absolute Auto 300 /uL (0-900); Monocytes Percent Auto 8.4 % (3-14); Neutrophils Absolute Auto 2800 /uL (1500-7000); Neutrophils Percent Auto 68.2 % (50-75); Platelet Count 177 X10^3/uL (150-400); Red Blood Cell Count 3.92 X10^6/uL (4.0-5.2); Red Cell Distribution Width 13.6 % (11.6-14.8); White Blood Cell Count 4.2 X10^3/uL (4.5-11.0)
[2020-09-11 17:30] VITALS: BP 193/96; PULSE 66; RESP 20; O2SAT 98
[2020-09-11 17:30] LABS: Troponin I < 0.012 ng/mL (0.01-0.034)
[2020-09-11] MEDS: dexAMETHasone 4 MG TABLET 10 MG PO (17:59)
[2020-09-11 18:01] VITALS: BP 193/96; PULSE 62
[2020-09-11] MEDS: lisinopriL 20 MG TABLET PO (18:01)
== END 2020-09-11 18:16 | disposition home or self-care (01) ==
PROVIDERS: Emergency Provider Emergency Medicine; PCP Family Medicine
DX: M54.10 Radiculopathy, site unspecified (principal); I10 Essential (primary) hypertension; E78.5 Hyperlipidemia, unspecified; F41.9 Anxiety disorder, unspecified; F31.9 Bipolar disorder, unspecified; F90.9 Attention-deficit hyperactivity disorder, unspecified type
CPT/HCPCS: 36415; 71045; 80053; 82550; 83690; 84484; 85025; 85610; 85730; 93005; 93010; 99281; 99284

== ENCOUNTER → 2020-09-21 16:16 | Outpatient (CLI) | payer MEDICARE, MEDICAID, SELFPAY ==
--- NOTE | 2020-09-21 16:17 | DI.RAD.S_ITS ---
PROCEDURE: XR CERVICAL SPINE 2V OR 3V INDICATIONS: Neck pain with radiculopathy on right TECHNIQUE: 3 view(s) of the cervical spine were acquired. COMPARISON: [facility], CERVICAL SPINE 2 OR 3 VIEWS, 10/20/2009, 12:54. FINDINGS: Bones: No fractures or dislocations to the T1 level. The lateral masses of C1 appear intact on the odontoid view. No suspicious bony lesions. Multilevel disc degeneration, severe at the C4-C5 and C5-C6 level and to slightly lesser degree C6-C7. Mild multilevel mid and lower cervical spine facet joint arthropathy and uncovertebral hypertrophy. Soft tissues: No prevertebral soft tissue swelling. IMPRESSION: Multilevel spondylosis, most notably with severe disc degeneration at the C4-C5 and C5-C6 levels. Dictated by: Flako Claire [facility] Interpreted: Louis Pepper MD on 09/21/2020 at 16:37 Approved by: Louis Pepper M.D. on 09/21/2020 at 17:22
== END ==
PROVIDERS: PCP Family Medicine; Referring Provider Family Medicine; Visit Provider Family Medicine
DX: M47.22 Other spondylosis with radiculopathy, cervical region (principal); M50.123 Cervical disc disorder at C6-C7 level with radiculopathy; I10 Essential (primary) hypertension
CPT/HCPCS: 72040

== ENCOUNTER → 2020-09-28 07:06 | Outpatient (CLI) | payer MEDICARE, MEDICAID, SELFPAY ==
--- NOTE | 2020-09-28 07:08 | DI.MRI.S_ITS ---
PROCEDURE: MR CERVICAL SPINE WO CON INDICATIONS: Radiculopathy and severe spine arthritis/disc degeneration TECHNIQUE: Noncontrast sagittal T1 spin echo and T2 fast spin echo, sagittal STIR, foraminal oblique sagittal T2 fast spin echo, and axial gradient echo or T2 fast spin echo through the cervical spine. COMPARISON: Located Within [facility], CR, XR CERVICAL SPINE 2V OR 3V, 09/21/2020, 16:23. FINDINGS: Image quality: Excellent. Alignment and Curvature: There is loss of normal cervical lordosis. There is mild grade 1 retrolisthesis of C4 on C5, C5 on C6, and C6 on C7. Mild grade 1 anterolisthesis of C7 on T1. Bone Marrow: Marrow demonstrates normal overall signal. There is moderate reactive signal within the endplates adjacent to the C4-C5 and C5-C6 intervertebral discs. Mild reactive signal within the endplates adjacent to the C6-C7 intervertebral discs. Hemangiomata at T3 and T4 are present. Spinal Cord: Visualized spinal cord has normal size and signal. No cerebellar tonsillar herniation. Paraspinous Soft Tissues: No paravertebral masses. Prevertebral soft tissues are normal in thickness. C2-C3: Mild disc desiccation and diffuse disc bulge. Mild facet and uncovertebral hypertrophy. Mild canal stenosis. Mild bilateral foraminal stenosis. C3-C4: Mild disc desiccation and diffuse disc bulge. Mild facet and uncovertebral hypertrophy bilaterally. Mild canal stenosis. Mild bilateral foraminal stenosis. C4-C5: Moderate disc height loss and desiccation. Moderate diffuse disc bulge. Moderate facet and uncovertebral hypertrophy bilaterally. Severe canal stenosis. Mild cord flattening severe bilateral foraminal stenosis with bilateral C5 nerve root compression. C5-C6: Moderate disc height loss and desiccation. Moderate diffuse disc bulge with superimposed central protrusion. Moderate facet and uncovertebral hypertrophy bilaterally. Severe canal stenosis. Mild cord flattening. Severe bilateral foraminal stenosis with bilateral C6 nerve root compression. C6-C7: Moderate disc height loss and desiccation. Mild diffuse disc bulge. Mild right and moderate left facet and uncovertebral hypertrophy. Moderate canal stenosis. Moderate right and severe left foraminal stenosis. Left C7 nerve root compression. C7-T1: Mild disc desiccation and diffuse disc bulge. Mild facet and uncovertebral hypertrophy. Mild canal stenosis. Mild bilateral foraminal stenosis. IMPRESSION: 1. Multilevel degenerative disc and facet disease, as well as uncovertebral hypertrophy. 2. Multilevel canal stenosis, worst at C4-C5 and C5-C6, where there is associated cord flattening. 3. Multilevel foraminal stenosis, worst at C5-C6, C6-C7, and C7-T1 where there is associated intraforaminal nerve root compression. Recommend correlation with clinical symptoms to ascertain relevance of these findings. Dictated by: Abiola Quiroz M.D. on 09/28/2020 at 9:05 Approved by: Abiola Quiroz M.D. on 09/28/2020 at 9:09
== END ==
PROVIDERS: PCP Family Medicine; Referring Provider Family Medicine; Visit Provider Family Medicine
DX: M54.12 Radiculopathy, cervical region (principal); G89.4 Chronic pain syndrome; M50.30 Other cervical disc degeneration, unspecified cervical region; M48.02 Spinal stenosis, cervical region
CPT/HCPCS: 72141

== ENCOUNTER → 2021-06-13 08:18 | Outpatient (CLI) | payer MEDICARE, MEDICAID, SELFPAY ==
[2021-06-13 15:53] LABS: COVID19 -Nasal RAPID Negative (Negative)
== END ==
PROVIDERS: PCP Family Medicine; Visit Provider Physical Medicine & Rehabilitation
DX: Z20.822 Contact with and (suspected) exposure to COVID-19 (principal)
CPT/HCPCS: 87635; C9803

== ENCOUNTER 2021-06-15 09:09 | Outpatient (CLI) | payer MEDICARE, MEDICAID, SELFPAY ==
[2021-06-15] VITALS (9 sets, daily range): BP systolic 130–167; BP diastolic 64–95; PULSE 61–68; RESP 14–20; TEMP 36.4; O2SAT 98–100
--- NOTE | 2021-06-15 09:14 | DI.RAD.S_ITS ---
PROCEDURE: PAIN C/T INTERLAMINAR INJECT INDICATIONS: SPINAL STENOSIS COMPARISON: [facility], MR, MR CERVICAL SPINE WO CON, 09/28/2020, 7:26. [facility], CR, XR CERVICAL SPINE 2V OR 3V, 09/21/2020, 16:23. FINDINGS: Fluoroscopic spot filming was performed to verify placement of a spinal needle at the C6-C7 level, as labeled on the films. Appropriate location of the needle tip was confirmed by injection of iodinated contrast. IMPRESSION: No significant intraprocedural abnormality. Dictated by: Neo Knowles M.D. on 06/15/2021 at 9:43 Approved by: Neo Knowles M.D. on 06/15/2021 at 9:43
--- NOTE | 2021-06-15 09:43 | P.PCN_ITS ---
Date/Time/Diagnoses Date of procedure: 06/15/21 Time of procedure: 10:17 Pre-procedure diagnosis: 1. CERVICAL STENOSIS, 2. CERVICAL HNP WITH UPPER EXTREMITY RADICULAR FEATURES Post-procedure diagnosis: same Procedure Notes Procedure: 1. FLUORSCOPICALLY GUIDED CONTRAST CONTROLLED INTERLAMINAR EPIDURAL STEROID INJECTION - C6/7 TL JEOVANNY Indications: Trisha is referred by Dr. Starks for treatment of Cervical HNP with Upper Extremity Paresthesias. Physician: Juan Jenkins Total Fluoroscopy time (seconds): 23 Total sedation minutes: 11 Complications: none Procedure in detail & Post-procedure care: FINDINGS Cervical Stenosis due to disc deterioration and nerve root irritation and nerve root irritation DESCRIPTION OF PROCEDURE Fluoroscopically guided, contrast-controlled C6/7 translaminar epidural steroid injection with conscious sedation. Following review of allergy and review of potential side effects and complications, including, but not necessarily limited to, infection, allergic reaction, local tissue breakdown, temporary as well as permanent nerve injury, stroke, paralysis, and possible , the patient indicated that patient understood and agreed to proceed. An informed consent document was signed by the patient, witnessed by a nurse, and placed in the patient's chart. Additionally, other treatment options including modalities, medications, and physical therapy were reviewed with the patient. After review of previous anaesthesic history and IV conscious sedation the patient was deemed safe to proceed with today?s procedure with IV conscious sedation as ASA class II designation. Safety time-out was performed to confirm patient ID, procedure to be performed and site of procedure. IV sedation was accomplished with a combination of 2mg of Versed and 50mcg of Fentanyl administered by the RN after DO order, titrated to patient comfort during the course of the procedure while the patient remained responsive to all verbal commands. In the prone position, following sterile prep and drape of the cervical region, the C6/7 translaminar space was identified fluoroscopically. The skin was anesthetized via a 25-gauge 1.5-inch needle with 1% lidocaine solution. At this point, a 25-gauge, 2.5-inch short bevel spinal needle was atraumatically introduced and advanced under fluoroscopic guidance into epidural space at the C6/7 translaminar space. Depth was confirmed on lateral view. Radiological data, including multiple fluoroscopic views of the cervical spine, reveal a spinal needle at the C6/7 translaminar space. Lateral views then show placement of the needle in the epidural space. Subsequent views show contrast material flowing superiorly and inferiorly in the epidural space. DSA fluoroscopy with live contrast injection, once again, confirmed no vascular or intrathecal uptake. At this point, using loss of resistance technique with saline and air, the epidural space was entered. Following negative aspiration, injection of appro ximately 1.5 cc of [id number]-200 with live fluoroscopy in the AP view confirmed epidural flow in the epidural space without vascular or intrathecal uptake observed. Subsequently, a test dose of 1 cc of 1% lidocaine solution was injected and patient was observed for two minutes without signs or symptoms of complications, including abdominal pain, shortness of breath, bilateral upper or lower extremity weakness, nausea and vomiting, prior to steroid injection. At this point, 3cc or 30mg of dexamethasone was then injected without incident. The patient tolerated the procedure well without signs or symptoms of complications prior to being transferred to the recovery area for further monitoring, The patient was then transferred to the recovery area where they were observed for an appropriate period of time after the injection. The patient reported a VAS score of 6 prior to the procedure and a post-procedure VAS of 0. POST OP INSTRUCTIONS The patient was provided a Pain Log to continue to record their response to the target-specific procedure prior to follow-up visit with the referring provider. Additionally, specific post-injection care instructions and a contact number to our office were provided if concerns arise regarding possible complications associated with the procedure are suspected.
[2021-06-15] MEDS: fentaNYL 100 MCG/2 ML INJ 50 MCG IV (10:03)
[2021-06-15] MEDS: MIDAZOLAM 5 MG/5 ML VIAL IV (10:03)
[2021-06-15] MEDS: BUPIVACAINE 0.25% (PF) VIAL 2 ML INJ (10:23)
[2021-06-15] MEDS: IOPAMIDOL 15 ML VIAL 3 ML INJ (10:23)
[2021-06-15] MEDS: DEXAMETHASONE 10 MG/ML VIAL 30 MG INJ (10:24)
== END 2021-06-15 10:40 | disposition home or self-care (01) ==
PROVIDERS: PCP Family Medicine; Referring Provider Physical Medicine & Rehabilitation; Visit Provider Physical Medicine & Rehabilitation
DX: M48.02 Spinal stenosis, cervical region (principal); M50.123 Cervical disc disorder at C6-C7 level with radiculopathy
CPT/HCPCS: 62321; 99152; J1100; J2250; J3010

== ENCOUNTER → 2021-08-10 17:10 | Outpatient (CLI) | payer MEDICARE, MEDICAID, SELFPAY ==
--- NOTE | 2021-08-10 | DI.MG.S_ITS ---
BILATERAL DIGITAL SCREENING MAMMOGRAM 3D/2D WITH CAD: 08/10/2021 CLINICAL: Routine screening. Family history of breast cancer. Comparison is made to exams dated: 07/27/2020 mammogram, 02/05/2019 mammogram, and 06/13/2017 mammogram - [facility]. There are scattered fibroglandular elements in both breasts. Current study was also evaluated with a Computer Aided Detection (CAD) system. No significant masses, calcifications, or other findings are seen in either breast. There has been no significant interval change. IMPRESSION: NEGATIVE There is no mammographic evidence of malignancy. A 1 year screening mammogram is recommended. This exam was interpreted at Station ID: [id number]. NOTE: For mammograms, a report in lay terms will be sent to the patient. Approximately 15% of breast malignancies will not be visualized mammographically. In the management of a palpable breast mass, a negative mammogram must not discourage biopsy of a clinically suspicious lesion. Electronically Signed By: Karyna la/lc:08/11/2021 11:48:40 letter sent: Normal Exam ACR BI-RADS Category 1: Negative [id number]
== END ==
PROVIDERS: PCP Family Medicine; Referring Provider Family Medicine; Visit Provider Family Medicine
DX: Z12.31 Encounter for screening mammogram for malignant neoplasm of breast (principal); Z80.3 Family history of malignant neoplasm of breast
CPT/HCPCS: 77063; 77067

== ENCOUNTER → 2021-10-24 12:59 | Outpatient (CLI) | payer MEDICARE, MEDICAID, SELFPAY ==
[2021-10-24 14:29] LABS: COVID19 -Nasal RAPID Negative (Negative)
== END ==
PROVIDERS: PCP Family Medicine; Referring Provider Physical Medicine & Rehabilitation; Visit Provider Physical Medicine & Rehabilitation
DX: Z20.822 Contact with and (suspected) exposure to COVID-19 (principal)
CPT/HCPCS: 87635; C9803

== ENCOUNTER 2021-10-26 09:15 | Outpatient (CLI) | payer MEDICARE, MEDICAID, SELFPAY ==
[2021-10-26] VITALS (9 sets, daily range): BP systolic 132–171; BP diastolic 66–93; PULSE 54–96; RESP 14–55; TEMP 36.7; O2SAT 7–100
--- NOTE | 2021-10-26 09:16 | DI.RAD.S_ITS ---
PROCEDURE: PAIN C/T INTERLAMINAR INJECT INDICATIONS: SPINAL STENOSIS COMPARISON: [facility], , PAIN C/T INTERLAMINAR INJECT, 06/15/2021, 10:08. FINDINGS: Fluoroscopic spot filming was performed to verify placement of a spinal needle at the C5-C6 level, as labeled on the films. Appropriate location of the needle tip was confirmed by injection of iodinated contrast. IMPRESSION: No significant intraprocedural abnormality. Dictated by: Neo Knowles M.D. on 10/26/2021 at 10:54 Approved by: Neo Knowles M.D. on 10/26/2021 at 10:54
[2021-10-26] MEDS: fentaNYL 100 MCG/2 ML INJ 50 MCG IV (10:20)
[2021-10-26] MEDS: MIDAZOLAM 5 MG/5 ML VIAL IV (10:20)
[2021-10-26] MEDS: IOPAMIDOL 15 ML VIAL 3 ML INJ (10:25)
[2021-10-26] MEDS: DEXAMETHASONE 10 MG/ML VIAL 30 MG INJ (10:25)
[2021-10-26] MEDS: BUPIVACAINE 0.25% (PF) VIAL 2 ML INJ (10:25)
--- NOTE | 2021-10-26 10:40 | PM.PROC.IR.1 ---
Date/Time/Diagnoses Date of procedure: 10/26/21 Time of procedure: 10:41 Pre-procedure diagnosis: 1. CERVICAL STENOSIS, 2. CERVICAL HNP WITH UPPER EXTREMITY RADICULAR FEATURES This procedure is found to meet the Governor's proclamation 20-24.2 regarding non urgent procedures. This patient meets multiple criteria for the procedure including continuing or worsening of significant or severe pain, combined with further deterioration of the patient's condition or overall health as well as delay in treatment would be expected to result in less positive ultimate medical outcome. Therefore the decision to perform the procedure in an outpatient hospital setting is found to be in accordance with guidelines of the proclamation. Post-procedure diagnosis: same Procedure Notes Procedure: 1. FLUORSCOPICALLY GUIDED CONTRAST CONTROLLED INTERLAMINAR EPIDURAL STEROID INJECTION - C5/6 TL JEOVANNY Indications: Trisha is referred by Dr. Starks for treatment of Cervical HNP with Upper Extremity Paresthesias. Physician: Juan Jenkins Total Fluoroscopy time (seconds): 31 Total sedation minutes: 14 Complications: none Procedure in detail & Post-procedure care: FINDINGS Cervical Stenosis due to disc deterioration and nerve root irritation and nerve root irritation DESCRIPTION OF PROCEDURE Fluoroscopically guided, contrast-controlled C5/6 translaminar epidural steroid injection with conscious sedation. Following review of allergy and review of potential side effects and complications, including, but not necessarily limited to, infection, allergic reaction, local tissue breakdown, temporary as well as permanent nerve injury, stroke, paralysis, and possible , the patient indicated that patient understood and agreed to proceed. An informed consent document was signed by the patient, witnessed by a nurse, and placed in the patient's chart. Additionally, other treatment options including modalities, medications, and physical therapy were reviewed with the patient. After review of previous anaesthesic history and IV conscious sedation the patient was deemed safe to proceed with today?s procedure with IV conscious sedation as ASA class II designation. Safety time-out was performed to confirm patient ID, procedure to be performed and site of procedure. IV sedation was accomplished with a combination of 2mg of Versed and 50mcg of Fentanyl administered by the RN after DO order, titrated to patient comfort during the course of the procedure while the patient remained responsive to all verbal commands. In the prone position, following sterile prep and drape of the cervical region, the C5/6 translaminar space was identified fluoroscopically. The skin was anesthetized via a 25-gauge 1.5-inch needle with 1% lidocaine solution. At this point, a 25-gauge, 2.5-inch short bevel spinal needle was atraumatically introduced and advanced under fluoroscopic guidance into epidural space at the C5/6 translaminar space. Depth was confirmed on lateral view. Radiological data, including multiple fluoroscopic views of the cervical spine, reveal a spinal needle at the C5/6 translaminar space. Lateral views then show placement of the needle in the epidural space. Subsequent views show contrast material flowing superiorly and inferiorly in the epidural space. DSA fluoroscopy with live contrast injection, once again, confirmed no vascular or intrathecal uptake. At this point, using loss of resistance technique with saline and air, the epidural space was entered. Following negative aspiration, injection of approximately 1.5 cc of Isovue-200 with live fluoroscopy in the AP view confirmed epidural flow in the epidural space without vascular or intrathecal uptake observed. Subsequently, a test dose of 1cc of 1% lidocaine solution was injected and patient was observed for two minutes without signs or symptoms of complications, including abdominal pain, shortness of breath, bilateral upper or lower extremity weakness, nausea and vomiting, prior to steroid injection. At this point, 3cc or 30mg of dexamethasone was then injected without incident. The patient tolerated the procedure well without signs or symptoms of complications prior to being transferred to the recovery area for further monitoring, The patient was then transferred to the recovery area where they were observed for an appropriate period of time after the injection. The patient reported a VAS score of 6 prior to the procedure and a post-procedure VAS of 0. POST OP INSTRUCTIONS The patient was provided a Pain Log to continue to record their response to the target-specific procedure prior to follow-up visit with the referring provider. Additionally, specific post-injection care instructions and a contact number to our office were provided if concerns arise regarding possible complications associated with the procedure are suspected.
== END 2021-10-26 11:10 | disposition home or self-care (01) ==
PROVIDERS: PCP Family Medicine; Referring Provider Physical Medicine & Rehabilitation; Visit Provider Physical Medicine & Rehabilitation
DX: M48.02 Spinal stenosis, cervical region (principal); M50.122 Cervical disc disorder at C5-C6 level with radiculopathy
CPT/HCPCS: 62321; 99152; J1100; J2250; J3010

== ENCOUNTER → 2022-08-27 14:31 | Outpatient (CLI) | payer MEDICARE, MEDICAID, SELFPAY ==
--- NOTE | 2022-08-27 14:33 | DI.MG.S_ITS ---
BILATERAL DIGITAL SCREENING MAMMOGRAM 3D/2D WITH CAD: 08/27/2022 CLINICAL: Routine screening. Family history of breast cancer. Comparison is made to exams dated: 08/10/2021 mammogram, 07/27/2020 mammogram, and 02/05/2019 mammogram - [facility]. Both breasts are heterogeneously dense, which may obscure small masses (category c / 51-75% glandular tissue). Current study was also evaluated with a Computer Aided Detection (CAD) system. No significant masses, calcifications, or other findings are seen in either breast. There has been no significant interval change. IMPRESSION: NEGATIVE There is no mammographic evidence of malignancy. A 1 year screening mammogram is recommended. Based on the Tyrer Cuzick model (a risk assessment model) the patient's lifetime risk is 7.9% and her 10 year risk is 2.6%. According to the ACR, ACS, and NCCN guidelines, an annual breast MRI exam along with mammogram is recommended if the patient's lifetime risk is 20% or greater. This exam was interpreted at Station ID: [id number]. NOTE: For mammograms, a report in lay terms will be sent to the patient. Approximately 15% of breast malignancies will not be visualized mammographically. In the management of a palpable breast mass, a negative mammogram must not discourage biopsy of a clinically suspicious lesion. Electronically Signed By: Nicolle patel/lc:08/27/2022 14:59:16 letter sent: Normal Exam ACR BI-RADS Category 1: Negative 3341F
== END ==
PROVIDERS: PCP Family Medicine; Referring Provider Family Medicine; Visit Provider Family Medicine
DX: Z12.31 Encounter for screening mammogram for malignant neoplasm of breast (principal); Z80.3 Family history of malignant neoplasm of breast
CPT/HCPCS: 77063; 77067

== ENCOUNTER → 2023-04-18 14:59 | Outpatient (CLI) | payer MEDICARE, MEDICAID, SELFPAY ==
--- NOTE | 2023-04-18 15:01 | DI.RAD.S_ITS ---
PROCEDURE: XR CERVICAL SPINE 2V OR 3V INDICATIONS: pain TECHNIQUE: 3 view(s) of the cervical spine were acquired. COMPARISON: [facility], CR, XR CERVICAL SPINE 2V OR 3V, 09/21/2020, 16:23. FINDINGS: Bones: Postsurgical changes compatible C4-C7 ACDF. Orthopedic hardware is in expected position. Orthopedic hardware is intact. No fractures or dislocations to the T1 level. The lateral masses of C1 appear intact on the odontoid view. No suspicious bony lesions. Mild facet hypertrophy throughout the cervical spine. Soft tissues: No prevertebral soft tissue swelling. IMPRESSION: Expected postsurgical change for C 4-C5, C5-C6 and C6-C7 ACDF. Multilevel facet arthropathy. No fracture. No acute osseous lesion. If symptoms and/or clinical suspicion for pathology persists, evaluation with MRI should be considered for further assessment. Dictated by: Ivette Porras MD, PhD on 04/18/2023 at 15:33 Approved by: Ivette Porras MD, PhD on 04/18/2023 at 15:35
[2023-04-18 16:07] LABS: Add Manual Diff / Slide Review NO; Basophils Absolute Auto 0 /uL (0-100); Basophils Percent Auto 0.5 % (0-2); Eosinophils Absolute Auto 200 /uL (0-450); Eosinophils Percent Auto 3.9 % (2-4); Hematocrit 35.5 % (36-46); Hemoglobin 12.1 g/dL (12.0-16.0); Lymphocytes Absolute Auto 1100 /uL (1100-4500); Lymphocytes Percent Auto 24.5 % (25-40); Mean Corpuscular HGB Conc 34.2 % (30-36); Mean Corpuscular Hemoglobin 29.3 PG (26-34); Mean Corpuscular Volume 85.7 fL (80-100); Monocytes Absolute Auto 500 /uL (0-900); Monocytes Percent Auto 11.5 % (3-14); Neutrophils Absolute Auto 2700 /uL (1500-7000); Neutrophils Percent Auto 59.6 % (50-75); Platelet Count 182 X10^3/uL (150-400); Red Blood Cell Count 4.14 X10^6/uL (4.0-5.2); Red Cell Distribution Width 13.1 % (11.6-14.8); White Blood Cell Count 4.5 X10^3/uL (4.5-11.0)
[2023-04-18 16:37] LABS: Alanine Aminotransferase 22 IU/L (<35); Albumin 4.3 g/dL (3.5-5.0); Albumin Globulin Ratio 1.6 (1.0-2.8); Alkaline Phosphatase 38 U/L (38-126); Aspartate Aminotransferase 28 IU/L (14-36); Bilirubin Total 0.5 mg/dL (0.2-1.3); Blood Urea Nitrogen 16 mg/dL (7-17); Calcium 9.3 mg/dL (8.4-10.2); Carbon Dioxide 32 mmol/L (22-32); Chloride 101 mmol/L (98-107); Cholesterol 162 mg/dL (140-199); Estimated Glomerular Filt Rate > 60 mL/min (>60); Globulin 2.7 g/dL (1.7-4.1); Glucose 72 mg/dL (70-100); HDL Cholesterol 74 mg/dL (40-60); HEMOLYSIS < 15 (0-50); LDL Cholesterol Calculated 71 mg/dL (<100); Potassium 3.7 mmol/L (3.4-5.1); Sodium 139 mmol/L (137-145); Triglycerides 83 mg/dL (35-150)
[2023-04-18 17:06] LABS: TSH w/ Reflex to FT4 0.35 uIU/mL (0.47-4.68)
[2023-04-18 17:37] LABS: Free T4, Direct Thyroxine 1.22 ng/dL (0.78-2.19)
[2023-04-18 19:14] LABS: Microalbumin Urine Random < 0.6 mg/dL (0-1.6)
== END ==
PROVIDERS: PCP Family Medicine; Referring Provider Family Medicine; Visit Provider Family Medicine
DX: M47.812 Spondylosis without myelopathy or radiculopathy, cervical region (principal); M48.02 Spinal stenosis, cervical region; E78.2 Mixed hyperlipidemia; M99.71 Connective tissue and disc stenosis of intervertebral foramina of cervical region; F90.9 Attention-deficit hyperactivity disorder, unspecified type; G89.4 Chronic pain syndrome; I10 Essential (primary) hypertension; Z98.1 Arthrodesis status
CPT/HCPCS: 36415; 72040; 80053; 80061; 82043; 82570; 84439; 84443; 85025

== ENCOUNTER 2023-08-10 16:34 | Emergency (ER) | payer MEDICARE, MEDICAID, SELFPAY ==
[2023-08-10 16:41] VITALS: BP 150/86; PULSE 65; RESP 18; TEMP 36.7; O2SAT 100; BMI 34.4
[2023-08-10 16:42] VITALS: PULSE 64; O2SAT 96
[2023-08-10 16:45] VITALS: BP 146/78; PULSE 64; O2SAT 96
--- NOTE | 2023-08-10 16:47 | ED_ITS ---
HPI - Wound/Laceration <Julio C Avitia PA-C - Last Filed: 08/10/23 17:19> General Chief Complaint: Wound/Laceration Stated Complaint: Laceration Time Seen by Provider: 08/10/23 16:37 Source: patient and EMS Mode of arrival: EMS History of Present Illness HPI narrative: This is a 58-year-old female presents to the emergency department due to a right wrist laceration. She states that she was lifting a glass bowl when it fell and shattered causing her to have a small laceration to the anterior aspect aspect of her right wrist. Unsure of tetanus is up-to-date. No active bleeding. No numbness or tingling or decreases in range of motion of the hand or wrist. Related Data Previous Rx's Medication Instructions Recorded disabled parking permit #1 ea 08/29/20 meloxicam 7.5 mg tablet See Rx Instructions .Route 09/25/22 .COMPLEX #90 tabs atorvastatin 10 mg tablet See Rx Instructions .Route 10/25/22 .COMPLEX #90 tabs lisinopril 30 mg tablet See Rx Instructions .Route 10/25/22 .COMPLEX #90 tabs atenolol 100 mg tablet See Rx Instructions .Route 01/17/23 .COMPLEX #150 tabs potassium chloride 20 mEq See Rx Instructions .Route 03/14/23 tablet,extended release(part/cryst) .COMPLEX #90 tabs acyclovir 400 mg tablet See Rx Instructions .Route 04/30/23 .COMPLEX #45 tabs omeprazole 20 mg capsule,delayed See Rx Instructions .Route 07/01/23 release .COMPLEX #270 caps hydrochlorothiazide 25 mg tablet 25 mg PO QDAY #90 tabs 07/29/23 dextroamphetamine-amphetamine 15 15 mg PO BID #60 tabs 08/01/23 mg tablet (Adderall) hydrocodone 7.5 mg-acetaminophen 2 tab PO TID PRN PAIN #180 tabs 08/06/23 325 mg tablet lamotrigine 150 mg tablet See Rx Instructions .Route 08/06/23 .COMPLEX #180 tabs Allergies Allergy/AdvReac Type Severity Reaction Status Date / Time gabapentin [GABAPENTIN] Allergy Mild STOMACH Verified 08/10/23 16:43 UPSET nortriptyline [NORTRIPTYLINE] Allergy Mild STOMACH Verified 08/10/23 16:43 UPSET oxycodone [OXYCODONE] Allergy Mild MAKES ME Verified 08/10/23 16:43 ITCHY sumatriptan [SUMATRIPTAN] Allergy Unknown Verified 08/10/23 16:43 pain contract AdvReac Unknown Uncoded 04/18/23 14:17 Review of Systems <Julio C Avitia PA-C - Last Filed: 08/10/23 17:19> Review of Systems Narrative: GENERAL: Denies chills, fatigue, malaise, fever, sweats. HEENT: Denies sinus pain, ear pain, sore throat, difficulty swallowing, dizziness. RESPIRATORY: Denies dyspnea, cough, wheezing, hemoptysis, sputum. CARDIOVASCULAR: Denies chest pain, palpitations, orthopnea, edema, GASTROINTESTINAL: Denies nausea, vomiting, abdominal pain, diarrhea, constipation, melena. : Denies dysuria, frequency, incontinence, hematuria, urinary retention. MUSCULOSKELETAL: denies weakness, joint pain, or bony pain SKIN: Right wrist laceration NEUROLOGIC: Denies weakness, headache, numbness, change in speech, confusion, seizures, incoordination. PSYCHIATRIC: No concerning psychosocial issues. 12 point review of systems is negative except for those stated above Patient History <Julio C Avitia PA-C - Last Filed: 08/10/23 17:19> Medical History (Updated 08/10/23 @ 17:19 by Julio C Avitia PA-C) Cervical radiculopathy Inflamed acrochordon Neuroforaminal stenosis of cervical spine Cervical stenosis of spinal canal Other cervical disc degeneration, unspecified cervical region Chronic pain syndrome HSV (herpes simplex virus) infection Hypertension ADHD (attention deficit hyperactivity disorder) Chronic headaches Anxiety Depression Lumbar spine pain Chronic back pain Carpal tunnel syndrome Ankle pain Bipolar I disorder (10/05/15) Surgical History Anesthesia H/O varicose vein stripping (2012) History of lumbosacral spine surgery (12/2004) Status post knee surgery (2011) History of carpal tunnel repair (02/17/13) Status post tubal ligation (2000) Family History Mother Age: 79 Diabetes mellitus Asthma Obesity Essential hypertension Hyperlipidemia Sister Age: 57 Hyperlipidemia Obesity Essential hypertension Father CAD (coronary artery disease) Grandfather Cancer Grandmother No problems noted. Grandfather No problems noted. Grandmother No problems noted. Family/Other Breast cancer Family/Other Breast cancer Social History household members: none Smoking Status: Current some day smoker alcohol intake: current Smoking Status: Current some day smoker tobacco type: cigarettes alcohol intake frequency: holidays/special occasions only Substance Use Type: does not use Exam <Julio C Avitia PA-C - Last Filed: 08/10/23 17:19> Narrative Exam Narrative: GENERAL: Well-developed patient, in mild distress. HEAD: Atraumatic. Normocephalic. EYES: Pupils equal round and reactive. Extraocular motions intact. No scleral icterus. No injection or drainage. ENT: Nose without bleeding, purulent drainage. Throat without erythema, tonsillar hypertrophy or exudate. Airway patent. NECK: Trachea midline. Non tender CARDIOVASCULAR: Regular rate and rhythm without murmurs, gallops, or rubs. RESPIRATORY: Clear to auscultation. Breath sounds equal bilaterally. No wheezes, rales, or rhonchi. GASTROINTESTINAL: Abdomen soft, non-tender, nondistended. EXTREMITIES: No edema or joint tenderness. BACK: Nontender without deformity or crepitance. No flank tenderness. NEURO: AOx3. SKIN: 1 cm laceration to the anterior aspect of the right wrist. No active bleeding. No foreign bodies no erythema. Full range of motion of the distal fingers. Neurovascularly intact throughout. Initial Vital Signs Initial Vital Signs: Vital Signs Temperature 98.0 F 08/10/23 16:41 Pulse Rate 65 08/10/23 16:41 Respiratory Rate 18 08/10/23 16:41 Blood Pressure 150/86 H 08/10/23 16:41 Pulse Oximetry 100 08/10/23 16:41 Oxygen Delivery Method Room Air 08/10/23 16:41 <Tiffanie Ureña DO - Last Filed: 08/10/23 18:36> Initial Vital Signs Initial Vital Signs: Vital Signs Temperature 98.0 F 08/10/23 16:41 Pulse Rate 65 08/10/23 16:41 Respiratory Rate 18 08/10/23 16:41 Blood Pressure 150/86 H 08/10/23 16:41 Pulse Oximetry 100 08/10/23 16:41 Oxygen Delivery Method Room Air 08/10/23 16:41 Procedures <Julio C Avitia PA-C - Last Filed: 08/10/23 17:19> Laceration Repair Laceration 1: Time of procedure: 17:03 Site: other (R wrist ) Side (If applicable): right Size (cm): 1 Description: linear Depth: simple, single layer Local Anesthetic: lidocaine 1% Amount of anesthesia used (mL): 2 Pre-repair: irrigated extensively Skin layer closed with: nylon Skin layer suture size: 5-0 Number of sutures: 2 Technique: simple, interrupted Course <ANA Borja Last Filed: 08/10/23 17:19> Orders Ordered: Discontinued Medications Diphtheria/Tetanus/Acell Pertussis (Diph,Pertuss(Acell),Tet Vac/Pf 0.5 Ml Syringe) 0.5 ml IM .ONCE ONE Stop: 08/10/23 17:06 Last Admin: 08/10/23 17:46 Dose: Not Given Documented By: JENNIFER Diphtheria/Tetanus/Acell Pertussis (Tet,Diph,Pertuss(Acell),Vac/Pf 0.5 Ml Syringe) 0.5 ml IM .ONCE ONE Stop: 08/10/23 17:48 Last Admin: 08/10/23 17:53 Dose: 0.5 ml Documented By: JENNIFER Lidocaine HCl (Lidocaine 1% 20 Ml) 20 ml INJ INTRA-OP ONE Stop: 08/10/23 16:59 Last Admin: 08/10/23 17:38 Dose: 20 ml Documented By: JENNIFER Vital Signs Vital signs: Vital Signs - 8 hr 08/10/23 16:41 08/10/23 16:42 08/10/23 16:45 Temperature 98.0 F Pulse Rate 65 64 Respiratory Rate 18 Blood Pressure 150/86 H 146/78 H Pulse Oximetry 100 96 Oxygen Delivery Method Room Air 08/10/23 16:45 08/10/23 17:00 08/10/23 17:30 Temperature Pulse Rate 64 63 Respiratory Rate Blood Pressure 142/67 H Pulse Oximetry 96 93 Oxygen Delivery Method 08/10/23 17:30 Temperature Pulse Rate 59 L Respiratory Rate Blood Pressure Pulse Oximetry 95 Oxygen Delivery Method <Tiffanie Ureña DO - Last Filed: 08/10/23 18:36> Orders Ordered: Discontinued Medications Diphtheria/Tetanus/Acell Pertussis (Diph,Pertuss(Acell),Tet Vac/Pf 0.5 Ml Syringe) 0.5 ml IM .ONCE ONE Stop: 08/10/23 17:06 Last Admin: 08/10/23 17:46 Dose: Not Given Documented By: JENNIFER Diphtheria/Tetanus/Acell Pertussis (Tet,Diph,Pertuss(Acell),Vac/Pf 0.5 Ml Syringe) 0.5 ml IM .ONCE ONE Stop: 08/10/23 17:48 Last Admin: 08/10/23 17:53 Dose: 0.5 ml Documented By: JENNIFER Lidocaine HCl (Lidocaine 1% 20 Ml) 20 ml INJ INTRA-OP ONE Stop: 08/10/23 16:59 Last Admin: 08/10/23 17:38 Dose: 20 ml Documented By: JENNIFER Vital Signs Vital signs: Vital Signs - 8 hr 08/10/23 16:41 08/10/23 16:42 08/10/23 16:45 Temperature 98.0 F Pulse Rate 65 64 Respiratory Rate 18 Blood Pressure 150/86 H 146/78 H Pulse Oximetry 100 96 Oxygen Delivery Method Room Air 08/10/23 16:45 08/10/23 17:00 08/10/23 17:30 Temperature Pulse Rate 64 63 Respiratory Rate Blood Pressure 142/67 H Pulse Oximetry 96 93 Oxygen Delivery Method 08/10/23 17:30 Temperature Pulse Rate 59 L Respiratory Rate Blood Pressure Pulse Oximetry 95 Oxygen Delivery Method MDM - Wound/Laceration <Julio C Avitia PA-C - Last Filed: 08/10/23 17:19> MDM Narrative Medical decision making narrative: MDM * differential diagnosis includes but not limited to laceration, tendon injury, foreign body * Prior records reviewed: Patient was seen here 3 years ago due to her blood pressure feeling off. History of hypertension, hyperlipidemia, anxiety, bipolar type 1. Workup was unremarkable and patient was discharged. * My lab interpretation: None obtained * My imaging interpretation: None obtained * Clinical Decision Rules/Scores evaluated: None * Independent discussions with: None ED Course: This is a 58-year-old female presents to the emergency department due to a very small and superficial laceration to the anterior aspect of the right wrist. This was closed as noted in the procedure note above without complications. Tetanus updated. Shared Decision Making: Discussed plan with the patient who is comfortable with the plan. Social Considerations: None Disposition: Discharged to home Discharge Plan Departure Patient Disposition: Home Clinical Impression: Laceration Instructions: DI for Laceration Repair Activity Restrictions/Additional Instructions: Thank you for coming to the [facility] Emergency Department today. I am glad that we are able to update her tetanus and stitched up the laceration. Please follow up with the primary care provider or walk-in clinic in 10-14 days for suture removal. I hope you feel better soon. Please follow up with your primary care provider within a week if your symptoms continue. If you do not have a primary care provider please contact the [facility] Resource line at [phone]. They will ask some questions about your medical history and help you get set up with a provider in the community. Prescriptions: No Action meloxicam 7.5 mg tablet See Rx Instructions .ROUTE .COMPLEX Qty: 90 3RF Dose Instruction: TAKE 1 TABLET BY MOUTH IN THE MORNING WITH FOOD Rx Instructions: TAKE 1 TABLET BY MOUTH IN THE MORNING WITH FOOD lisinopril 30 mg tablet See Rx Instructions .ROUTE .COMPLEX Qty: 90 3RF Dose Instruction: TAKE 1 TABLET BY MOUTH DAILY Rx Instructions: TAKE 1 TABLET BY MOUTH DAILY atorvastatin 10 mg tablet See Rx Instructions .ROUTE .COMPLEX Qty: 90 3RF Dose Instruction: 1T PO HS Rx Instructions: 1T PO HS atenolol 100 mg tablet See Rx Instructions .ROUTE .COMPLEX Qty: 150 2RF Dose Instruction: TAKE 1 TABLET BY MOUTH IN THE MORNING AND 1/2 TABLET IN THE EVENING Rx Instructions: TAKE 1 TABLET BY MOUTH IN THE MORNING AND 1/2 TABLET IN THE EVENING potassium chloride 20 mEq tablet,ER particles/crystals See Rx Instructions .ROUTE .COMPLEX Qty: 90 1RF Dose Instruction: TAKE 1 TABLET BY MOUTH EVERY DAY Rx Instructions: TAKE 1 TABLET BY MOUTH EVERY DAY acyclovir 400 mg tablet See Rx Instructions .ROUTE .COMPLEX Qty: 45 3RF Dose Instruction: TAKE 1 TABLET BY MOUTH THREE TIMES DAILY NEEDED FOR HERPES. Rx Instructions: TAKE 1 TABLET BY MOUTH THREE TIMES DAILY NEEDED FOR HERPES. omeprazole 20 mg capsule,delayed release(DR/EC) See Rx Instructions .ROUTE .COMPLEX Qty: 270 1RF Dose Instruction: TAKE 1 CAPSULE BY MOUTH THREE TIMES DAILY Rx Instructions: TAKE 1 CAPSULE BY MOUTH THREE TIMES DAILY hydrochlorothiazide 25 mg tablet 25 mg PO QDAY Qty: 90 3RF dextroamphetamine-amphetamine [Adderall] 15 mg tablet 15 mg PO BID Qty: 60 0RF Rx Instructions: administer doses at least 4-6 hours apart lamotrigine 150 mg tablet See Rx Instructions .ROUTE .COMPLEX Qty: 180 2RF Dose Instruction: TAKE 2 TABLETS BY MOUTH EVERY DAY Rx Instructions: TAKE 2 TABLETS BY MOUTH EVERY DAY hydrocodone-acetaminophen 7.5-325 mg tablet 2 tab PO TID PRN (Reason: PAIN) Qty: 180 0RF Rx Instructions: must last 30 days (DME) disabled parking permit See Rx Instructions .ROUTE .MEDSUPPLY Qty: 1 0RF Rx Instructions: As directed. patient qualifies for disabled parking as per attached form. Referrals: Alex Starks MD [Primary Care Provider] - Stand Alone Forms: Patient Portal/API ED Sign-out <Tiffanie Ureña DO - Last Filed: 08/10/23 18:36> Cosign ED Attending Mihir Attestation: I was immediately available in the department for consultation. Documentation has been reviewed.
[2023-08-10 17:00] VITALS: PULSE 63; O2SAT 93
[2023-08-10 17:30] VITALS: BP 142/67; PULSE 59; O2SAT 95
[2023-08-10] MEDS: LIDOCAINE 1% 20 ML INJ (17:38)
[2023-08-10] MEDS: TET,DIPH,PERTUSS(ACELL),VAC/PF 0.5 ML SYRINGE IM (17:53)
== END 2023-08-10 17:55 | disposition home or self-care (01) ==
PROVIDERS: Emergency Provider Physician Assistant Medical; PCP Family Medicine
DX: S61.511A Laceration without foreign body of right wrist, initial encounter (principal); W25.XXXA Contact with sharp glass, initial encounter; Z79.899 Other long term (current) drug therapy; Z23 Encounter for immunization
CPT/HCPCS: 12001; 90471; 99283; 99284; 90715

== ENCOUNTER → 2023-08-28 12:49 | Outpatient (CLI) | payer MEDICARE, MEDICAID, SELFPAY ==
--- NOTE | 2023-08-28 12:51 | DI.MG.S_ITS ---
BILATERAL DIGITAL SCREENING MAMMOGRAM 3D/2D WITH CAD: 08/28/2023 CLINICAL: Routine screening. Family history of breast cancer. Comparison is made to exams dated: 08/27/2022 mammogram, 08/10/2021 mammogram, and 07/27/2020 mammogram - [facility]. There are scattered areas of fibroglandular density in both breasts (category b / 25%-50% glandular tissue). Current study was also evaluated with a Computer Aided Detection (CAD) system. No significant masses, calcifications, or other findings are seen in either breast. There has been no significant interval change. IMPRESSION: NEGATIVE There is no mammographic evidence of malignancy. A 1 year screening mammogram is recommended. Based on the Tyrer Cuzick model (a risk assessment model) the patient's lifetime risk is 5.3% and her 10 year risk is 1.8%. According to the ACR, ACS, and NCCN guidelines, an annual breast MRI exam along with mammogram is recommended if the patient's lifetime risk is 20% or greater. This exam was interpreted at Station ID: [id number]. NOTE: For mammograms, a report in lay terms will be sent to the patient. Approximately 15% of breast malignancies will not be visualized mammographically. In the management of a palpable breast mass, a negative mammogram must not discourage biopsy of a clinically suspicious lesion. Electronically Signed By: Yordan gomez/lc:08/28/2023 14:27:24 letter sent: Normal Exam ACR BI-RADS Category 1: Negative 3341F
== END ==
PROVIDERS: PCP Family Medicine; Referring Provider Family Medicine; Visit Provider Family Medicine
DX: Z12.31 Encounter for screening mammogram for malignant neoplasm of breast (principal); Z80.3 Family history of malignant neoplasm of breast
CPT/HCPCS: 77063; 77067

== ENCOUNTER → 2024-04-20 09:44 | Outpatient (CLI) | payer MEDICARE, MEDICAID, SELFPAY ==
[2024-04-20 11:04] LABS: Creatinine Urine Random 320.17 mg/dL
[2024-04-20 11:09] LABS: Microalbumin Urine Random 2.7 mg/dL (0-1.6)
[2024-04-20 11:37] LABS: Add Manual Diff / Slide Review NO; Basophils Absolute Auto 0 /uL (0-100); Basophils Percent Auto 0.5 % (0-2); Eosinophils Absolute Auto 100 /uL (0-450); Eosinophils Percent Auto 3.3 % (2-4); Hematocrit 37.7 % (36-46); Hemoglobin 12.6 g/dL (12.0-16.0); Lymphocytes Absolute Auto 1100 /uL (1100-4500); Lymphocytes Percent Auto 25.5 % (25-40); Mean Corpuscular HGB Conc 33.4 % (30-36); Mean Corpuscular Hemoglobin 28.3 PG (26-34); Mean Corpuscular Volume 84.7 fL (80-100); Monocytes Absolute Auto 500 /uL (0-900); Monocytes Percent Auto 10.8 % (3-14); Neutrophils Absolute Auto 2600 /uL (1500-7000); Neutrophils Percent Auto 59.9 % (50-75); Platelet Count 202 X10^3/uL (150-400); Red Blood Cell Count 4.45 X10^6/uL (4.0-5.2); Red Cell Distribution Width 13.5 % (11.6-14.8); White Blood Cell Count 4.4 X10^3/uL (4.5-11.0)
[2024-04-20 12:03] LABS: Alanine Aminotransferase 25 IU/L (<35); Albumin 4.8 g/dL (3.5-5.0); Albumin Globulin Ratio 1.7 (1.0-2.8); Alkaline Phosphatase 48 U/L (38-126); Aspartate Aminotransferase 37 IU/L (14-36); BUN Creatinine Ratio 14.6 (6-22); Blood Urea Nitrogen 19 mg/dL (7-17); Calcium 9.2 mg/dL (8.4-10.2); Carbon Dioxide 28 mmol/L (22-32); Chloride 104 mmol/L (98-107); Cholesterol 155 mg/dL (140-199); Estimated Glomerular Filt Rate 48 mL/min (>60); Globulin 2.9 g/dL (1.7-4.1); Glucose 91 mg/dL (70-100); HDL Cholesterol 61 mg/dL (40-60); HEMOLYSIS < 15 (0-50); LDL Cholesterol Calculated 74 mg/dL (<100); Potassium 4.2 mmol/L (3.4-5.1); Sodium 141 mmol/L (137-145); Total Protein 7.7 g/dL (6.3-8.2); Triglycerides 99 mg/dL (35-150)
[2024-04-20 13:01] LABS: TSH w/ Reflex to FT4 1.57 uIU/mL (0.47-4.68)
[2024-04-21 05:13] LABS: Apolipoprotein B 65 mg/dL (<90)
== END ==
PROVIDERS: PCP Family Medicine; Referring Provider Family Medicine; Visit Provider Family Medicine
DX: F11.20 Opioid dependence, uncomplicated (principal); I10 Essential (primary) hypertension; M99.71 Connective tissue and disc stenosis of intervertebral foramina of cervical region; G89.4 Chronic pain syndrome; E78.2 Mixed hyperlipidemia; M48.02 Spinal stenosis, cervical region
CPT/HCPCS: 36415; 80053; 80061; 82043; 82172; 82570; 84443; 85025

== ENCOUNTER → 2024-04-29 12:07 | Outpatient (CLI) | payer MEDICARE, MEDICAID, SELFPAY ==
[2024-04-29 12:44] LABS: UR Morphine/Opiate cutoff 300 Positive (Negative); Ur Creatinine Normal (Normal); Ur Specific Gravity Normal (Normal); Urine Amphetamines Positive (Negative); Urine Barbiturates Negative (Negative); Urine Benzodiazepines Negative (Negative); Urine Cocaine Negative (Negative); Urine MDMA Negative (Negative); Urine Methadone Negative (Negative); Urine Methamphetamines Negative (Negative); Urine Oxycodone Negative (Negative); Urine Phencyclidine Negative (Negative); Urine Tetrahydrocannabinol Negative (Negative); Urine Tricyclic Antidepressant Negative (Negative); Urine pH Normal (Normal)
== END ==
PROVIDERS: PCP Family Medicine; Referring Provider Family Medicine; Visit Provider Family Medicine
DX: Z79.899 Other long term (current) drug therapy (principal)
CPT/HCPCS: 80305

== ENCOUNTER → 2024-05-11 11:48 | Outpatient (CLI) | payer MEDICARE, MEDICAID, SELFPAY ==
[2024-05-11 13:09] LABS: Alanine Aminotransferase 23 IU/L (<35); Albumin 4.3 g/dL (3.5-5.0); Albumin Globulin Ratio 1.9 (1.0-2.8); Alkaline Phosphatase 53 U/L (38-126); Aspartate Aminotransferase 37 IU/L (14-36); BUN Creatinine Ratio 17.9 (6-22); Blood Urea Nitrogen 21 mg/dL (7-17); Calcium 9.3 mg/dL (8.4-10.2); Carbon Dioxide 27 mmol/L (22-32); Chloride 102 mmol/L (98-107); Estimated Glomerular Filt Rate 54 mL/min (>60); Globulin 2.3 g/dL (1.7-4.1); Glucose 93 mg/dL (70-100); HEMOLYSIS < 15 (0-50); Sodium 137 mmol/L (137-145); Total Protein 6.6 g/dL (6.3-8.2)
== END ==
PROVIDERS: PCP Family Medicine; Referring Provider Family Medicine; Visit Provider Family Medicine
DX: I10 Essential (primary) hypertension (principal); M99.71 Connective tissue and disc stenosis of intervertebral foramina of cervical region; M48.02 Spinal stenosis, cervical region; G89.4 Chronic pain syndrome
CPT/HCPCS: 36415; 80053

== ENCOUNTER → 2024-09-04 15:38 | Outpatient (CLI) | payer MEDICARE, MEDICAID, SELFPAY ==
--- NOTE | 2024-09-04 15:38 | DI.MG.S_ITS ---
BILATERAL DIGITAL SCREENING MAMMOGRAM 3D/2D WITH CAD: 09/04/2024 CLINICAL: Routine screening. Family history of breast cancer. Comparison is made to exams dated: 08/28/2023 mammogram, 08/27/2022 mammogram, and 08/10/2021 mammogram - [facility]. There are scattered areas of fibroglandular density (category b / 25%-50% glandular tissue). Current study was also evaluated with a Computer Aided Detection (CAD) system. No significant masses, calcifications, or other findings are seen in either breast. There has been no significant interval change. IMPRESSION: NEGATIVE There is no mammographic evidence of malignancy. A 1 year screening mammogram is recommended. Based on the Tyrer Cuzick model (a risk assessment model) the patient's lifetime risk is 5.2% and her 10 year risk is 1.9%. According to the ACR, ACS, and NCCN guidelines, an annual breast MRI exam along with mammogram is recommended if the patient's lifetime risk is 20% or greater. This exam was interpreted at Station ID: [id number]. NOTE: For mammograms, a report in lay terms will be sent to the patient. Approximately 15% of breast malignancies will not be visualized mammographically. In the management of a palpable breast mass, a negative mammogram must not discourage biopsy of a clinically suspicious lesion. Electronically Signed By: Reese limon/lc:09/04/2024 16:44:04 letter sent: Normal Exam ACR BI-RADS Category 1: Negative
== END ==
PROVIDERS: PCP Family Medicine; Referring Provider Family Medicine; Visit Provider Family Medicine
DX: Z12.31 Encounter for screening mammogram for malignant neoplasm of breast (principal); Z80.3 Family history of malignant neoplasm of breast
CPT/HCPCS: 77063; 77067

== ENCOUNTER 2024-11-07 17:50 | Emergency (ER) | payer MEDICARE, MEDICAID, SELFPAY ==
[2024-11-07 18:20] VITALS: BP 167/85; PULSE 65; RESP 15; TEMP 36.9; O2SAT 97; BMI 37.1
[2024-11-07 19:38] LABS: Influenza A - CEPHEID Flu A NEGATIVE (NEGATIVE); Influenza B - CEPHEID Flu B NEGATIVE (NEGATIVE); Respiratory Syncytial Virus Negative (Negative)
[2024-11-07 19:40] LABS: COVID-19 CEPHEID 4-PLEX PCR Negative (Negative)
--- NOTE | 2024-11-07 20:45 | ED_ITS ---
HPI - URI/Sore Throat General Chief Complaint: Upper Respiratory Symptoms Stated Complaint: fever, chest congestion and cough Time Seen by Provider: 11/07/24 20:45 Source: patient Mode of arrival: Ambulatory History of Present Illness HPI Narrative: 51-year-old female with a past medical history hypertension hyperlipidemia comes into the ED for flu-like symptoms. She states that she has been feeling seen flu-like symptoms associated with cough ongoing persistent for the past few days, she states that her symptoms started approximately 1 week ago, she has not complaining of any headache visual disturbances chest pain nausea vomiting abdominal pain or any other GI/ symptoms time. She states that she arrives with a family member who has had similar symptoms and is worried that she may have ?given her the same bug so she wanted to be evaluated as well. Related Data Previous Rx's Medication Instructions Recorded disabled parking permit #1 ea 08/29/20 lamotrigine 150 mg tablet See Rx Instructions .Route 05/01/24 .COMPLEX #180 tabs atorvastatin 10 mg tablet 10 mg PO ONCE PM #90 tabs 07/20/24 hydrochlorothiazide 25 mg tablet 25 mg PO QDAY #90 tabs 07/20/24 omeprazole 20 mg capsule,delayed See Rx Instructions .Route 08/07/24 release .COMPLEX #270 caps potassium chloride 20 mEq See Rx Instructions .Route 08/31/24 tablet,extended release(part/cryst) .COMPLEX #90 tabs acyclovir 400 mg tablet See Rx Instructions .Route 10/16/24 .COMPLEX #45 tabs atenolol 100 mg tablet See Rx Instructions .Route 10/16/24 .COMPLEX #150 tabs dextroamphetamine-amphetamine 15 15 mg PO BID #60 tabs 10/16/24 mg tablet (Adderall) dextroamphetamine-amphetamine 15 15 mg PO BID #60 tabs 10/16/24 mg tablet (Adderall) dextroamphetamine-amphetamine 15 15 mg PO BID #60 tabs 10/16/24 mg tablet (Adderall) hydrocodone 7.5 mg-acetaminophen 2 tab PO TID PRN PAIN #180 tabs 10/16/24 325 mg tablet hydrocodone 7.5 mg-acetaminophen 2 tab PO TID PRN pain #180 tabs 10/16/24 325 mg tablet hydrocodone 7.5 mg-acetaminophen 2 tab PO TID PRN pain #180 tabs 10/16/24 325 mg tablet lisinopril 30 mg tablet 30 mg PO DAILY #90 tabs 10/16/24 meloxicam 7.5 mg tablet See Rx Instructions .Route 10/20/24 .COMPLEX #90 tabs albuterol sulfate 90 mcg/actuation 2 inh inhalation QID PRN shortness 11/07/24 breath activated powder inhaler of breath #1 ea methylprednisolone 4 mg tablets in 4 mg PO DAILY #21 ea 11/07/24 a dose pack (Medrol (Anjel)) Allergies Allergy/AdvReac Type Severity Reaction Status Date / Time gabapentin [GABAPENTIN] Allergy Mild STOMACH Verified 11/07/24 18:24 UPSET nortriptyline [NORTRIPTYLINE] Allergy Mild STOMACH Verified 11/07/24 18:24 UPSET oxycodone [OXYCODONE] Allergy Mild MAKES ME Verified 11/07/24 18:24 ITCHY sumatriptan [SUMATRIPTAN] Allergy Unknown Verified 11/07/24 18:24 pain contract AdvReac Unknown Uncoded 11/07/24 18:24 Review of Systems Review of Systems Narrative: General: Positive fever, chills, denies weight loss HEENT: Positive congestion Denies headache, eye drainage, eye irritation, head trauma, sore throat, voice change Cardiovascular: Denies any chest pain, palpitations, shortness of breath, tachycardia Respiratory: , positive cough, Denies any shortness of breath wheeze, stridor GI/: Denies any abdominal pain, nausea, vomiting, diarrhea, bright red blood per rectum, melanotic stools, urinary frequency, urinary retention, dysuria, hematuria MSK: Positive myalgias Denies any joint pain, swelling Skin: Denies any rashes, lesions, discoloration Neuro: Denies any headache, lightheadedness, dizziness, fainting, weakness Psych: Denies SI/HI Patient History Medical History (Updated 11/07/24 @ 20:57 by Mike Patel DO) Opiate dependence Cervical radiculopathy Inflamed acrochordon Neuroforaminal stenosis of cervical spine Cervical stenosis of spinal canal Other cervical disc degeneration, unspecified cervical region Chronic pain syndrome HSV (herpes simplex virus) infection Hypertension ADHD (attention deficit hyperactivity disorder) Chronic headaches Anxiety Depression Lumbar spine pain Chronic back pain Carpal tunnel syndrome Ankle pain Bipolar I disorder (10/05/15) Surgical History Anesthesia H/O varicose vein stripping (2012) History of lumbosacral spine surgery (12/2004) Status post knee surgery (2011) History of carpal tunnel repair (02/17/13) Status post tubal ligation (2000) Family History Mother Age: 81 Diabetes mellitus Asthma Obesity Essential hypertension Hyperlipidemia Sister Age: 59 Hyperlipidemia Obesity Essential hypertension Father CAD (coronary artery disease) Grandfather Cancer Grandmother No problems noted. Grandfather No problems noted. Grandmother No problems noted. Family/Other Breast cancer Family/Other Breast cancer Social History household members: none Smoking Status: Current some day smoker alcohol intake: current Smoking Status: Current some day smoker tobacco type: cigarettes alcohol intake frequency: holidays/special occasions only Exam Initial Vital Signs Initial Vital Signs: Vital Signs Temperature 98.5 F 11/07/24 18:20 Pulse Rate 65 11/07/24 18:20 Respiratory Rate 15 11/07/24 18:20 Blood Pressure 167/85 H 11/07/24 18:20 Pulse Oximetry 97 11/07/24 18:20 Oxygen Delivery Method Room Air 11/07/24 18:20 Course Orders Ordered: ED Orders 11/07/24 18:44 Covid-19 + FLU A/B + RSV - PCR Stat Vital Signs Vital signs: Vital Signs - 8 hr 11/07/24 18:20 11/07/24 21:05 Temperature 98.5 F 98.1 F Pulse Rate 65 60 Respiratory Rate 15 22 Blood Pressure 167/85 H 138/57 L Pulse Oximetry 97 97 Oxygen Delivery Method Room Air Room Air MDM - URI/Sore Throat Differential Diagnosis Differential diagnosis: Likely upper respiratory infection, bronchitis, influenza and other (RSV) Lab Data Labs: Lab Results 11/07/24 Range/Units 18:44 SARS-CoV-2 (PCR) Negative (Negative) Influenza A (RT-PCR) Flu a negative (NEGATIVE) Influenza B (RT-PCR) Flu b negative (NEGATIVE) RSV (PCR) Negative (Negative) MDM Narrative Medical decision making narrative: Patient is a 59-year-old female spoke with history of hypertension hyperlipidemia presenting for flu-like symptoms ongoing persistent for the past several days, she states that she presents with a family member because she was worried that she might have ?given them the same bug. She states that her symptoms have been controlled with [id number] medication but wanted to be checked out since she presents with that family member. Patient respiratory viral panel negative however patient coughing on exam therefore we will symptomatically treat for bronchitis. Patient afebrile nontoxic appearing not requiring any supplemental oxygen she will be instructed to follow up with primary care in outpatient setting strict return precautions were given she verb alized understanding of this and agrees to being discharged home with outpatient follow up Discharge Plan Departure Patient Disposition: Home Clinical Impression: Bronchitis Instructions: DI for Acute Bronchitis Activity Restrictions/Additional Instructions: Please follow up with your primary care doctor Please read the discharge instructions sheet carefully and bring all papers to all doctor follow-up visits, as it may contain information that your doctor may want to see. Disease processes change and evolve, if your symptoms worsen or if you develop any new symptoms that are concerning to you please return for evaluation. Your evaluation today does not show any evidence of any life- threatening/serious illnesses requiring admission to the hospital or surgery. Please follow-up with your doctor for re-evaluation in approximately 1 day. Seek immediate medical attention for any worrisome symptoms. *If you do not have a primary care provider please contact the [facility] Resource line at [phone]. They will ask some questions about your medical history and help get you set up with a doctor in the community. Prescriptions: New albuterol sulfate 90 mcg/actuation aerosol powdr breath activated 2 inh inhalation QID PRN (Reason: shortness of breath) Qty: 1 0RF methylprednisolone [Medrol (Anjel)] 4 mg tablets,dose pack 4 mg PO DAILY Qty: 21 0RF No Action lamotrigine 150 mg tablet See Rx Instructions .ROUTE .COMPLEX Qty: 180 3RF Dose Instruction: TAKE 2 TABLETS BY MOUTH EVERY DAY Rx Instructions: TAKE 2 TABLETS BY MOUTH EVERY DAY omeprazole 20 mg capsule,delayed release(DR/EC) See Rx Instructions .ROUTE .COMPLEX Qty: 270 1RF Dose Instruction: TAKE 1 CAPSULE BY MOUTH THREE TIMES DAILY Rx Instructions: TAKE 1 CAPSULE BY MOUTH THREE TIMES DAILY potassium chloride 20 mEq tablet,ER particles/crystals See Rx Instructions .ROUTE .COMPLEX Qty: 90 0RF Dose Instruction: TAKE 1 TABLET BY MOUTH EVERY DAY Rx Instructions: TAKE 1 TABLET BY MOUTH EVERY DAY meloxicam 7.5 mg tablet See Rx Instructions .ROUTE .COMPLEX Qty: 90 3RF Dose Instruction: TAKE 1 TABLET BY MOUTH IN THE MORNING WITH FOOD Rx Instructions: TAKE 1 TABLET BY MOUTH IN THE MORNING WITH FOOD (DME) disabled parking permit See Rx Instructions .ROUTE .MEDSUPPLY Qty: 1 0RF Rx Instructions: As directed. patient qualifies for disabled parking as per attached form. hydrochlorothiazide 25 mg tablet 25 mg PO QDAY Qty: 90 3RF atorvastatin 10 mg tablet 10 mg PO ONCE PM Qty: 90 3RF hydrocodone-acetaminophen 7.5-325 mg tablet 2 tab PO TID PRN (Reason: pain) Qty: 180 0RF hydrocodone-acetaminophen 7.5-325 mg tablet 2 tab PO TID PRN (Reason: PAIN) Qty: 180 0RF Rx Instructions: must last 30 days hydrocodone-acetaminophen 7.5-325 mg tablet 2 tab PO TID PRN (Reason: pain) Qty: 180 0RF dextroamphetamine-amphetamine [Adderall] 15 mg tablet 15 mg PO BID Qty: 60 0RF Rx Instructions: administer doses at least 4-6 hours apart dextroamphetamine-amphetamine [Adderall] 15 mg tablet 15 mg PO BID Qty: 60 0RF Rx Instructions: administer doses at least 4-6 hours apart dextroamphetamine-amphetamine [Adderall] 15 mg tablet 15 mg PO BID Qty: 60 0RF Rx Instructions: administer doses at least 4-6 hours apart atenolol 100 mg tablet See Rx Instructions .ROUTE .COMPLEX Qty: 150 2RF Dose Instruction: TAKE 1 TABLET BY MOUTH IN THE MORNING AND 1/2 TABLET IN THE EVENING Rx Instructions: TAKE 1 TABLET BY MOUTH IN THE MORNING AND 1/2 TABLET IN THE EVENING acyclovir 400 mg tablet See Rx Instructions .ROUTE .COMPLEX Qty: 45 3RF Dose Instruction: TAKE 1 TABLET BY MOUTH THREE TIMES DAILY NEEDED FOR HERPES. Rx Instructions: TAKE 1 TABLET BY MOUTH THREE TIMES DAILY NEEDED FOR HERPES. lisinopril 30 mg tablet 30 mg PO DAILY Qty: 90 3RF Referrals: Alex Starks MD [Primary Care Provider] - Stand Alone Forms: Patient Portal/API/Survey
[2024-11-07 21:05] VITALS: BP 138/57; PULSE 60; RESP 22; TEMP 36.7; O2SAT 97
== END 2024-11-07 21:11 | disposition home or self-care (01) ==
PROVIDERS: Emergency Provider Student in an Organized Health Care Education/Training Program; PCP Family Medicine
DX: J20.9 Acute bronchitis, unspecified (principal); R50.9 Fever, unspecified; I10 Essential (primary) hypertension; E78.5 Hyperlipidemia, unspecified
CPT/HCPCS: 0241U; 99282

== ENCOUNTER 2025-03-30 06:24 | Emergency (ER) | payer MEDICARE, MEDICAID, SELFPAY ==
[2025-03-30] VITALS (9 sets, daily range): BP systolic 141–188; BP diastolic 73–102; PULSE 53–70; RESP 17–18; TEMP 36.4; O2SAT 91–97; BMI 37.9
--- NOTE | 2025-03-30 06:36 | ED_ITS ---
HPI - General Adult <Ash QuilesFilibertoBertFiliberto Moat, DO - Last Filed: 03/31/25 06:52> General Chief complaint: Extremity Problem,Nontraumatic Stated complaint: left foot heel pad hurts can't walk Time Seen by Provider: 03/30/25 06:30 History of Present Illness HPI narrative: 60-year-old female history of opiate dependence, hypertension, dyslipidemia, ADHD, presents with left heel pain starting yesterday while shopping now having difficulty bearing weight and ambulating without having to put most of her weight on the opposite leg. Patient takes Vicodin for chronic pain but it does not even touch the pain on her heel when she bears weight. Patient denies any trauma to the area, heavy lifting, or any inciting event, that may have caused this. She reports having heel pain about a month ago but it went away on its own on the same foot. Other than what is stated 14 point review of system is negative. Related Data Previous Rx's ?Medication ?Instructions ?Recorded disabled parking permit #1 ea 08/29/20 lamotrigine 150 mg tablet See Rx Instructions .Route 0 05/01/24 .COMPLEX #180 tabs hydrochlorothiazide 25 mg tablet 25 mg PO QDAY #90 tab s 07/20/24 acyclovir 400 mg tablet See Rx Instructions .Route 0 10/16/24 .COMPLEX #45 tabs atenolol 100 mg tablet See Rx Instructions .Route 0 10/16/24 .COMPLEX #150 tabs meloxicam 7.5 mg tablet See Rx Instructions .Route 0 10/20/24 .COMPLEX #90 tabs albuterol sulfate 90 mcg/actuation 2 inh inhalation QI D PRN shortness 11/07/24 breath activated powder inhaler of breath #1 ea methylprednisolone 4 mg tablets in 4 mg PO DAILY #21 e a 11/07/24 a dose pack (Medrol (Anjel)) atorvastatin 10 mg tablet 10 mg PO ONCE PM #90 tabs lisinopril 30 mg tablet 30 mg PO DAILY #90 tabs 11/01 02/21 potassium chloride 20 mEq 20 meq PO DAILY #90 tabs 04/23 tablet,extended release(part/cryst) dextroamphetamine-amphetamine 15 15 mg PO BID #60 tabs 01/14/25 mg tablet (Adderall) dextroamphetamine-amphetamine 15 15 mg PO BID #60 tabs 01/14/25 mg tablet (Adderall) dextroamphetamine-amphetamine 15 15 mg PO BID #60 tabs 01/14/25 mg tablet (Adderall) hydrocodone 7.5 mg-acetaminophen 2 tab PO TID PRN PAIN #180 tabs 01/14/25 325 mg tablet hydrocodone 7.5 mg-acetaminophen 2 tab PO TID PRN pain #180 tabs 01/14/25 325 mg tablet hydrocodone 7.5 mg-acetaminophen 2 tab PO TID PRN pain #180 tabs 01/14/25 325 mg tablet omeprazole 20 mg capsule,delayed See Rx Instructions . Route 02/03/25 release .COMPLEX #270 caps doxycycline hyclate 100 mg tablet 100 mg PO BID #14 ta bs 03/30/25 Allergies Allergy/AdvReac Type Severity Reaction Status Date / Time gabapentin (GABAPENTIN) Allergy Mild STOMACH Verified 01/14/25 10:22 UPSET nortriptyline (NORTRIPTYLINE) Allergy Mild STOMACH Verified 01/14/25 10:22 UPSET oxycodone (OXYCODONE) Allergy Mild MAKES ME Verified 01/14/25 10:22 ITCHY sumatriptan (SUMATRIPTAN) Allergy Unknown Verified 01/14/25 10:22 pain contract AdvReac Unknown Uncoded 01/14/25 10:22 Review of Systems <Ash Mota DO - Last Filed: 03/31/25 06:52> Review of Systems ROS Unobtainable: All systems reviewed & are unremarkable except as noted in HPI and below Patient History <Ash Mota DO - Last Filed: 03/31/25 06:52> Medical History (Updated 03/30/25 @ 08:17 by Lani Fernandez DO) Opiate dependence Cervical radiculopathy Inflamed acrochordon Neuroforaminal stenosis of cervical spine Cervical stenosis of spinal canal Other cervical disc degeneration, unspecified cervical region Chronic pain syndrome HSV (herpes simplex virus) infection Hypertension ADHD (attention deficit hyperactivity disorder) Chronic headaches Anxiety Depression Lumbar spine pain Chronic back pain Carpal tunnel syndrome Ankle pain Bipolar I disorder (10/05/15) Surgical History Anesthesia H/O varicose vein stripping (2012) History of lumbosacral spine surgery (12/2004) Status post knee surgery (2011) History of carpal tunnel repair (02/17/13) Status post tubal ligation (2000) Family History Mother Age: 81 Diabetes mellitus Asthma Obesity Essential hypertension Hyperlipidemia Sister Age: 59 Hyperlipidemia Obesity Essential hypertension Father CAD (coronary artery disease) Grandfather Cancer Grandmother No problems noted. Grandfather No problems noted. Grandmother No problems noted. Family/Other Breast cancer Family/Other Breast cancer Social History household members: none Smoking Status: Current some day smoker alcohol intake: current tobacco type: cigarettes alcohol intake frequency: holidays/special occasions only Exam <Ash Mota DO - Last Filed: 03/31/25 06:52> Narrative Exam Narrative: GENERAL: [84] year old patient appears stated age. Well-developed patient, in mild distress. HEAD: Atraumatic. Normocephalic. EYES: Pupils equal round and reactive. Extraocular motions intact. No scleral icterus. No injection or drainage. EXTREMITIES: No edema or joint tenderness. Left foot base of heel tender to palpate, motor sensory intact +2 dorsalis pedis +2 post tib cap refill less than 2nd BACK: Nontender without deformity or crepitance. No flank tenderness. NEURO: AOx3. SKIN: No rash or erythema of visible areas Initial Vital Signs Initial Vital Signs: Vital Signs Pulse Rate 70 03/30/25 06:31 Pulse Oximetry 96 03/30/25 06:31 <Lani Fernandez DO - Last Filed: 03/30/25 09:39> Initial Vital Signs Initial Vital Signs: Vital Signs Pulse Rate 70 03/30/25 06:31 Pulse Oximetry 96 03/30/25 06:31 Course <Ash Mota DO - Last Filed: 03/31/25 06:52> Orders Ordered: ED Orders 03/30/25 06:50 XR foot LT min 3V Stat Vital Signs Vital signs: Vital Signs - 8 hr 03/30/25 06:31 03/30/25 06:32 03/30/25 06:32 Temperature Pulse Rate 70 69 Respiratory Rate Blood Pressure 188/102 H Pulse Oximetry 96 97 Oxygen Delivery Method 03/30/25 06:38 03/30/25 07:00 03/30/25 07:01 Temperature 97.5 F L Pulse Rate 70 57 L 56 L Respiratory Rate 17 Blood Pressure 188/102 H Pulse Oximetry 96 93 92 Oxygen Delivery Method Room Air 03/30/25 07:01 03/30/25 07:30 03/30/25 07:31 Temperature Pulse Rate 58 L Respiratory Rate Blood Pressure 141/75 H 148/73 H Pulse Oximetry 91 Oxygen Delivery Method 03/30/25 07:31 03/30/25 08:00 03/30/25 08:00 Temperature Pulse Rate 55 L 53 L Respiratory Rate Blood Pressure 149/78 H Pulse Oximetry 91 92 Oxygen Delivery Method 03/30/25 08:59 Temperature Pulse Rate Respiratory Rate 18 Blood Pressure Pulse Oximetry Oxygen Delivery Method <DO Yuli Cristina Last Filed: 03/30/25 09:39> Orders Ordered: ED Orders 03/30/25 06:50 XR foot LT min 3V Stat Vital Signs Vital signs: Vital Signs - 8 hr 03/30/25 06:31 03/30/25 06:32 03/30/25 06:32 Temperature Pulse Rate 70 69 Respiratory Rate Blood Pressure 188/102 H Pulse Oximetry 96 97 Oxygen Delivery Method 03/30/25 06:38 03/30/25 07:00 03/30/25 07:01 Temperature 97.5 F L Pulse Rate 70 57 L 56 L Respiratory Rate 17 Blood Pressure 188/102 H Pulse Oximetry 96 93 92 Oxygen Delivery Method Room Air 03/30/25 07:01 03/30/25 07:30 03/30/25 07:31 Temperature Pulse Rate 58 L Respiratory Rate Blood Pressure 141/75 H 148/73 H Pulse Oximetry 91 Oxygen Delivery Method 03/30/25 07:31 03/30/25 08:00 03/30/25 08:00 Temperature Pulse Rate 55 L 53 L Respiratory Rate Blood Pressure 149/78 H Pulse Oximetry 91 92 Oxygen Delivery Method 03/30/25 08:59 Temperature Pulse Rate Respiratory Rate 18 Blood Pressure Pulse Oximetry Oxygen Delivery Method Medical Decision Making <DO Yuli Cristina Filed: 03/30/25 09:39> MDM Narrative Medical decision making narrative: 60-year-old female presents with complaint of pain of the heel of the left foot. Patient was seen and evaluated by myself after sign-out from Dr. Mota while imaging was pending. Patient has tenderness over the midportion of the heel on exam does note she has been ambulating quite a bit yesterday. She was some slight fullness in comparison to the alternate foot no warmth, no erythema or other skin changes appreciated no lacerations or abrasions are noted or puncture wounds. Patient does not have any bony tenderness tenderness is localized purely to the midportion of the heel. Foot x-ray, there is some soft tissue edema plantar surface of the heel region there was prominent plantar calcaneal spur. No acute bony abnormality. Discussed with the patient we will set her up with crutches, weightbear as tolerated she states she was pain medication at home discussed there is a little bit of fullness and edema we will give a prescription for oral antibiotic as she was starts noticed redness or skin changes to go ahead and start. Discharge Plan Departure Patient Disposition: Home Clinical Impression: Heel pain Qualifiers: Laterality: left Qualified Code(s): M79.672 - Pain in left foot Activity Restrictions/Additional Instructions: Your imaging shows prominent plantar calcaneal spur as well with a small amount of edema. Weightbear as tolerated use crutches as needed. Continue your home medications as prescribed. There is a chance that you can be developing infection of the bottom of your foot if you noticed increasing redness, pain or other changes go ahead and start the prescription of antibiotics sent to [facility]. Please return for fevers, rapidly worsening symptoms, new numbness tingling or weakness, loss of sensation, color changes such as pink pale, blue or red or other new or concerning changes. Prescriptions: New doxycycline hyclate 100 mg tablet 100 mg PO BID Qty: 14 0RF No Action lamotrigine 150 mg tablet See Rx Instructions .ROUTE .COMPLEX Qty: 180 3RF Dose Instruction: TAKE 2 TABLETS BY MOUTH EVERY DAY Rx Instructions: TAKE 2 TABLETS BY MOUTH EVERY DAY meloxicam 7.5 mg tablet See Rx Instructions .ROUTE .COMPLEX Qty: 90 3RF Dose Instruction: TAKE 1 TABLET BY MOUTH IN THE MORNING WITH FOOD Rx Instructions: TAKE 1 TABLET BY MOUTH IN THE MORNING WITH FOOD atorvastatin 10 mg tablet 10 mg PO ONCE PM Qty: 90 2RF lisinopril 30 mg tablet 30 mg PO DAILY Qty: 90 2RF potassium chloride 20 mEq tablet,ER particles/crystals 20 meq PO DAILY Qty: 90 3RF omeprazole 20 mg capsule,delayed release(DR/EC) See Rx Instructions .ROUTE .COMPLEX Qty: 270 1RF Dose Instruction: TAKE 1 CAPSULE BY MOUTH THREE TIMES DAILY Rx Instructions: TAKE 1 CAPSULE BY MOUTH THREE TIMES DAILY (DME) disabled parking permit See Rx Instructions .ROUTE .MEDSUPPLY Qty: 1 0RF Rx Instructions: As directed. patient qualifies for disabled parking as per attached form. hydrochlorothiazide 25 mg tablet 25 mg PO QDAY Qty: 90 3RF atenolol 100 mg tablet See Rx Instructions .ROUTE .COMPLEX Qty: 150 2RF Dose Instruction: TAKE 1 TABLET BY MOUTH IN THE MORNING AND 1/2 TABLET IN THE EVENING Rx Instructions: TAKE 1 TABLET BY MOUTH IN THE MORNING AND 1/2 TABLET IN THE EVENING acyclovir 400 mg tablet See Rx Instructions .ROUTE .COMPLEX Qty: 45 3RF Dose Instruction: TAKE 1 TABLET BY MOUTH THREE TIMES DAILY NEEDED FOR HERPES. Rx Instructions: TAKE 1 TABLET BY MOUTH THREE TIMES DAILY NEEDED FOR HERPES. hydrocodone-acetaminophen 7.5-325 mg tablet 2 tab PO TID PRN (Reason: pain) Qty: 180 0RF hydrocodone-acetaminophen 7.5-325 mg tablet 2 tab PO TID PRN (Reason: PAIN) Qty: 180 0RF Rx Instructions: must last 30 days hydrocodone-acetaminophen 7.5-325 mg tablet 2 tab PO TID PRN (Reason: pain) Qty: 180 0RF dextroamphetamine-amphetamine [Adderall] 15 mg tablet 15 mg PO BID Qty: 60 0RF Rx Instructions: administer doses at least 4-6 hours apart dextroamphetamine-amphetamine [Adderall] 15 mg tablet 15 mg PO BID Qty: 60 0RF Rx Instructions: administer doses at least 4-6 hours apart dextroamphetamine-amphetamine [Adderall] 15 mg tablet 15 mg PO BID Qty: 60 0RF Rx Instructions: administer doses at least 4-6 hours apart albuterol sulfate 90 mcg/actuation aerosol powdr breath activated 2 inh inhalation QID PRN (Reason: shortness of breath) Qty: 1 0RF methylprednisolone [Medrol (Anjel)] 4 mg tablets,dose pack 4 mg PO DAILY Qty: 21 0RF Referrals: Alex Starks MD [Primary Care Provider, [facility]] Stand Alone Forms: Patient Portal/API
--- NOTE | 2025-03-30 06:50 | DI.RAD.S_ITS ---
PROCEDURE: XR FOOT LT MIN 3V INDICATIONS: left foot TECHNIQUE: 3 views of the foot were acquired. COMPARISON: None. FINDINGS: Bones: No fractures or dislocations. No suspicious bony lesions. Prominent plantar calcaneal spur. Soft tissues: No tibiotalar joint effusion. Achilles tendon appears normal. Soft tissue edema, plantar surface of the heel. IMPRESSION: There is some soft tissue edema in the plantar surface of the heel region. There is a prominent plantar calcaneal spur. No acute bony abnormality. Dictated by: Ismael Coleman M.D. on 03/30/2025 at 8:04 Approved by: Ismael Coleman M.D. on 03/30/2025 at 8:09
== END 2025-03-30 09:00 | disposition home or self-care (01) ==
PROVIDERS: Emergency Provider Emergency Medicine; PCP Family Medicine
DX: M79.672 Pain in left foot (principal)
CPT/HCPCS: 73630; 99282; 99283

== ENCOUNTER → 2025-04-22 18:41 | Outpatient (CLI) | payer MEDICARE, MEDICAID, SELFPAY ==
--- NOTE | 2025-04-22 18:42 | DI.MRI.S_ITS ---
PROCEDURE: MRFOOT LT WO CON INDICATIONS: significant left foot pain TECHNIQUE: Multiphasic, multisequence MRI of the ankle/hindfoot was performed, without intravenous contrast administration. COMPARISON: [facility], CR, XR FOOT LT MIN 3V, 03/30/2025, 7:14. FINDINGS: Image quality: Excellent. Please note that this exam was submitted for interpretation on 04/26/2025. Bones and joints: Mild osseous edema at the plantar aspect of the calcaneus is likely reactive. No bony fracture is seen. Nonedematous posterior calcaneal enthesophyte is present. Mild degenerative changes at the dorsal talonavicular and naviculocuneiform articulations. No hindfoot coalitions. No osteochondral injuries of the talar dome. Medial structures: The deltoid ligament and the spring ligament complex are intact. Mild posterior tibialis tenosynovitis. The flexor digitorum longus and flexor hallucis longus tendons are intact. The posterior tibial neurovascular bundle appears normal within the tarsal tunnel, without extrinsic mass effect. Lateral structures: Remote prior low-grade sprain of the anterior talofibular ligament and calcaneofibular ligament. The posterior talofibular ligament is intact. The anterior and posterior tibiofibular ligaments are intact. The peroneus longus and brevis tendons demonstrate [id number] tendinosis. The sinus tarsi demonstrates normal fatty signal. Anterior structures: The tibialis anterior, extensor hallucis longus, and extensor digitorum longus tendons appear intact. Posterior and plantar structures: Moderate Achilles tendinosis. There is thickening of the proximal plantar fascia with focal fluid signal within the central band approximately 1.3 cm from the origin with surrounding soft tissue and osseous edema. No abductor digiti minimi muscle atrophy to suggest Ko neuropathy. IMPRESSION: 1. Focal high-grade partial tearing of the central band of the proximal plantar fascia is located approximately 1.3 cm from the origin with surrounding osseous and soft tissue edema. No calcaneal fracture. 2. Moderate Achilles tendinosis. 3. Remote prior low-grade sprains of the anterior talofibular ligament and the calcaneofibular ligament. 4. [id number] peroneus brevis and longus tendinosis. 5. Mild distal posterior tibialis tenosynovitis. Approved by: Reese Berkowitz M.D. on 04/26/2025 at 14:58
== END ==
LOC: MRI 18:41
PROVIDERS: PCP Family Medicine; Referring Provider Family Medicine; Visit Provider Family Medicine
DX: S96.812A Strain of other specified muscles and tendons at ankle and foot level, left foot, initial encounter (principal); S93.492A Sprain of other ligament of left ankle, initial encounter; S93.412A Sprain of calcaneofibular ligament of left ankle, initial encounter; M79.89 Other specified soft tissue disorders; M65.862 Other synovitis and tenosynovitis, left lower leg; M79.672 Pain in left foot
CPT/HCPCS: 73718